=== PATIENT | female | born 1940 | race Caucasian/White ===

== ENCOUNTER 2017-08-22 06:21 | Inpatient (IN) | payer MEDICARE, OTHER ==
[~2017-08-22] VITALS: Ht 175.3 cm; Wt 75.1 kg
--- OUTSIDE RECORDS SUMMARY | 2017-08-22 06:24 | XMS REPORT | Clinical Summary ---
Author Author Leslie InspireMD Leslie Druze Address Unknown Phone Unavailable Care Team Providers Care Sap Basis Architect Name Role Phone Asked, Pcp PCP Unavailable Allergies Active Allergy Reactions Severity Noted Date Comments Ceftriaxone Swelling 09/24/2016 Ciprofloxacin Swelling Medium 08/27/2015 "eyes swell" Iodinated Contrast- Oral Shortness Of Breath High 02/27/2016 And Iv Dye Benzocaine-Benzethonium Shortness Of Breath High 02/26/2016 Nitrofurantoin Swelling Medium 08/27/2015 "eyes swell" Monohyd/M-Cryst Opioids - Morphine Other (See Comments) High 06/11/2016 "convulsions" Analogues Opioids-Meperidine And Other (See Comments) High 06/11/2016 "convulsions" Related Opioids-Methadone And Other (See Comments) High 06/11/2016 "convulsions" Related Bromelains 09/01/2016 Sulfa (Sulfonamide Itching Medium 08/27/2015 Antibiotics) Current Medications Prescription Sig. Disp. Refills Start End Date Status Date thyroid, pork, (ARMOUR Take 180 mg by mouth Active THYROID) 180 mg tablet every morning. clonIDINE (CATAPRES) 0.1 Take 0.1 mg by mouth Active MG tablet daily as needed for high blood pressure ((for SBP>170)). gabapentin (NEURONTIN) Take 300 mg by mouth 3 08/30/19 Discontin 300 mg capsule (three) times a day. 17 ued metoprolol succinate XL Take 25 mg by mouth 11/13/19 Discontin (TOPROL-XL) 25 mg 24 hr nightly. 17 ued tablet predniSONE (DELTASONE) 5 Take 5 mg by mouth every 09/05/19 Discontin mg tablet morning. 2.5mg po every 17 ued other day losartan (COZAAR) 100 MG Take 100 mg by mouth 11/13/19 Discontin tablet every morning. 17 ued ursodiol (JOSELUIS FORTE) 500 Take 500 mg by mouth 2 09/26/19 Discontin MG tablet (two) times a day. 17 ued LORAZepam (ATIVAN) 0.5 MG Take 0.5 mg by mouth 11/13/19 Discontin tablet nightly as needed for 17 ued anxiety. atorvastatin (LIPITOR) 20 Take 20 mg by mouth 08/30/19 Discontin MG tablet nightly. 17 ued aspirin (ECOTRIN) 81 MG Take 81 mg by mouth every 09/26/19 Discontin enteric coated tablet evening. 17 ued ARMOUR THYROID 120 mg TK 1 T PO ONCE D 1 07/08/19 08/30/19 Discontin tablet 17 17 ued hydroCHLOROthiazide TK 1 T PO QD 6 07/31/19 11/13/19 Discontin (HYDRODIURIL) 25 MG 17 17 ued tablet ELIQUIS 5 mg tablet TK 1 T PO BID 4 08/06/19 09/26/19 Discontin 17 17 ued amoxicillin-pot TK 1 T PO BID 0 06/02/19 08/30/19 Discontin clavulanate (AUGMENTIN) 17 17 ued 500-125 mg per tablet amLODIPine (NORVASC) 5 mg TK 1 T PO BID 6 07/29/19 11/13/19 Discontin tablet 17 17 ued diphenhydrAMINE Take 1 tablet (25 mg 30 tablet 0 09/05/19 10/05/19 (BENADRYL) 25 mg tablet total) by mouth every 6 17 17 (six) hours as needed for itching for up to 30 days. albuterol (PROVENTIL) 2.5 Take 3 mL (2.5 mg total) 75 mL 12 09/05/19 10/05/19 mg /3 mL (0.083 %) by nebulization every 6 17 nebulizer solution (six) hours as needed for wheezing or shortness of breath for up to 30 days. cefTRIAXone (ROCEPHIN) 2 Infuse 2 g into a venous 09/05/19 09/11/19 g in 100 ML Mini-Bag Plus catheter every 12 17 17 (twelve) hours for 6 days. predniSONE (DELTASONE) Take 1 tablet (2.5 mg 15 tablet 0 09/05/19 2.5 mg tablet total) by mouth every 17 17 other day for 30 days. sennosides-docusate Take 1 tablet by mouth 2 60 tablet 0 09/05/19 sodium (SENOKOT-S) 8.6-50 (two) times a day for 30 17 17 mg per tablet days. amoxicillin-pot Take 1 tablet by mouth 20 tablet 0 11/13/19 clavulanate (AUGMENTIN) every 12 (twelve) hours 17 17 875-125 mg per tablet for 10 days. metroNIDAZOLE (FLAGYL) Take 1 tablet (500 mg 30 tablet 0 11/13/19 500 MG tablet total) by mouth 3 (three) 17 17 times a day for 9 days. Active Problems No known active problems Resolved Problems Problem Noted Date Resolved Date Complete heart block 09/25/2016 09/26/2016 Acute bacterial meningitis 08/27/2016 09/25/2016 Dyspnea 06/11/2016 10/15/2016 Acute knee pain 02/27/2016 09/25/2016 Postoperative cerebrospinal fluid leak 06/12/2015 10/15/2016 Overview: Overview: Nasal, via left mastoid/eustacean Encounters Date Type Specialty Care Team Description 11/12/2016 Emergency Emergency Medicine Rosa, Noble De La Torre MD Colitis (Primary Dx); Chadd Johnson PA-C Diverticulitis of large intestine without perforation or abscess with bleeding 09/26/2016 Patient Quality Malia Hart, RN Outreach 09/25/2016 [facility] General Internal Medicine Rashaad Yanez Preoperative testing - Encounter MD Santhosh 09/26/2016 09/25/2016 Procedure Pass Procedural Cardiology 09/25/2016 Surgery Procedural Cardiology Rashaad Yanez Ep ppi [ 57834 (CPT )] MD Santhosh 09/24/2016 Pre-Admit Pre-Admission Testing Rashaad Yanez Preoperative testing Testing MD Santhosh (Primary Dx) Appointment 08/28/2016 Procedure Pass Procedural Cardiology 08/28/2016 Surgery Procedural Cardiology Rashaad Yanez Ep temporary ppi MD Santhosh insertion with active lead fixation and outside generator [44640 (CPT )] 08/26/2016 [facility] General Internal Medicine Facundo Nielsen Acute bacterial - Encounter MD Wallace meningitis (Primary Dx) 09/04/2016 Nafisa Oquendo MD after 08/21/2016 Family History Medical History Relation Name Comments Cancer Father Hypertension Father Stroke Maternal Grandfather Heart failure Mother Cancer Other Hypertension Other Stroke Other Relation Name Status Comments Father Maternal Grandfather Mother Other Social History Tobacco Use Types Packs/Day Years Used Date Never Smoker Alcohol Use Drinks/Week oz/Week Comments No Sex Assigned at Date Recorded Not on file Last Filed Vital Signs Vital Sign Reading Time Taken Blood Pressure 122/76 11/12/2016 5:12 PM CDT Pulse 69 11/12/2016 3:21 PM CDT Temperature 36.2 C (97.2 F) 11/12/2016 5:12 PM CDT Respiratory Rate 18 11/12/2016 5:12 PM CDT Oxygen Saturation 99% 11/12/2016 5:12 PM CDT Inhaled Oxygen - - Concentration Weight 67.1 kg (148 lb) 11/12/2016 10:15 AM CDT Height 175.3 cm (5' 9") 11/12/2016 10:15 AM CDT Body Mass Index 21.86 11/12/2016 10:15 AM CDT Plan of Treatment Health Maintenance Due Date Last Done Comments SHINGRIX VACCINE (#1) 1990 ZOSTER VACCINE 2000 PNEUMOCOCCAL 2005 POLYSACCHARIDE VACCINE AGE 65 AND OVER PNEUMOCOCCAL-13 2005 INFLUENZA VACCINE 10/13/2017 Implants Implanted Type Area Welding Supervisor Device Expiration Model / Identifier Date Serial / Lot Disp Pacing Cable, Small Clip Cables/ N/A: N/A IZZY 09/05/2018 [id number] / W/[employer] / Implanted: Qty: 1 on 09/25/2016 by [id number] Rashaad Yanez MD Accolade Mri Dr Pacemaker - Cardiac Right: HOLLAND PATENT 07/28/2018 [id number] / [id number] Pacemaker Chest SCIENTIFIC- CRM [id number] / Implanted: 09/25/2016 (Quantity not Generators Wall [id number] on file) 52cm Ingevity Mri Active Fixation Cardiac N/A: N/A HOLLAND PATENT 08/10/2018 7741 / Pacing Lead - [id number] - [id number] Pacing SCIENTIFIC- CRM [id number] / Implanted: Qty: 1 on 08/28/2016 by Leads or [id number] Rashaad Yanez MD Electrodes or Accessorie s Ingevity Mri Pacing Lead 45cm - Cardiac N/A: N/A HOLLAND PATENT 08/10/2018 7740 45 / [id number] Pacing SCIENTIFIC- CRM [id number] / Implanted: 09/25/2016 (Quantity not Leads or [id number] on file) Electrodes or Accessorie s 52cm Ingevity Mri Active Fixation Cardiac N/A: N/A HOLLAND PATENT 09/10/2018 7741 / Pacing Lead - [id number] Pacing SCIENTIFIC- CRM [id number] / Implanted: 09/25/2016 (Quantity not Leads or [id number] on file) Electrodes or Accessorie s 6fr Safesheath Ii Introducer Introducer Right: HOLLAND PATENT 04/15/2021 7460 / Sheath, Model 7460 / Part # /Sheath Chest SCIENTIFIC/CRM / [id number] (Mfr'D By Pressure Wall (FORMERLY DIV [id number] Products) OF GUIDANT) Implanted: Explanted: 08/28/2016 (Quantity not on file) Pacemaker Explanted Type Area Welding Supervisor Device Expiration Model / Identifier Date Serial / Lot 52cm (0.014in) [employer]land[employer] Scientfic Accessorie N/A: N/A HOLLAND PATENT 2019 5013 / Lead Stylet, Long Tapered, Soft s - EP SCIENTIFIC/CRM [id number] / Implanted: (FORMERLY DIV [id number] Explanted: 08/28/2016 (Quantity not OF GUIDANT) on file) 6fr Safesheath Ii Introducer Introducer N/A: N/A HOLLAND PATENT 04/15/2021 7460 / Sheath, Model 7460 / Part # /Sheath SCIENTIFIC/CRM / [id number] (Mfr'D By Pressure (FORMERLY DIV [id number] Products) OF GUIDANT) Implanted: Explanted: 09/25/2016 by Rashaad Yanez MD (Quantity not on file) Procedures Procedure Name Priority Date/Time Associated Diagnosis Comments EP PPI Routine 09/25/2016 4:58 PM CDT EP TEMPORARY PPI Routine 08/28/2016 INSERTION 5:05 PM CDT ECHOCARDIOGRAM 2D Routine 08/27/2016 Results for this COMPLETE W MMODE SPECTRAL 5:15 PM CDT procedure are in the COLOR DOPPLER (68083) results section. after 08/21/2016 Results * Urinalysis screen and microscopy, with reflex to culture (11/12/2016 1:26 PM) Only the most recent of 2 results within the time period is included. Component Value Ref Range Specimen site Clean catch Color, UA Yellow Appearance, UA Clear Specific gravity, UA 1.015 1.001 - 1.035 pH, UA 5.0 5.0 - 8.5 Protein, UA Negative Negative Glucose, UA Negative Negative Ketones, UA Negative Negative Bilirubin, UA Negative Negative Blood, UA Negative Negative Nitrite, UA Negative Negative Urobilinogen, UA Negative <2.0 Leukocyte esterase, UA Moderate (A) Negative Epithelial cells, UA Few /HPF Round epithelial cells, Moderate 0 - 1 /HPF UA WBC, UA 6-10 (H) 0 - 4 /HPF RBC, UA 0-5 0 - 2 /HPF Bacteria, UA Trace None seen Yeast, UA None seen Yeast with pseudohyphae, None seen UA Hyaline casts, UA 6-10 /LPF Specimen Performing Laboratory Urine [facility] DEPARTMENT OF PATHOLOGY AND GENOMIC MEDICINE [id number] [place] [address] [place] [address] * Gram stain (11/12/2016 1:26 PM) Only the most recent of 4 results within the time period is included. Component Value Ref Range Gram stain result Few WBC's No organisms seen Comment: Specimen Information Specimen Source: Urine Specimen Site: See UA Specimen Performing Laboratory Urine [facility] DEPARTMENT OF PATHOLOGY AND GENOMIC MEDICINE [address] [place] [id number] * Urine culture (11/12/2016 1:26 PM) Only the most recent of 2 results within the time period is included. Component Value Ref Range Urine culture isolate Mixed Gram negative rods 10-3 cfu/ml (A) Comment: Specimen Information Specimen Source: Urine Specimen Site: See UA Urine culture isolate Enterococcus faecalis 10-5 cfu/ml The performance characteristics of this assay on this isolate were validated by the Microbiology Laboratory at [facility]. This source has not been approved by the U.S. Food and Drug Administration. The results are not intended to be used as the sole means for clinical diagnosis or patient management. The Microbiology Laboratory is authorized under the clinical Laboratory Improvement Amendments of 1988 (CLIA-88) to perform high complexity testing. (A) Specimen Performing Laboratory Urine [facility] DEPARTMENT OF PATHOLOGY AND GENOMIC MEDICINE [address] [place] [id number] Organism Antibiotic Method Susceptibility Enterococcus faecalis Ampicillin EVARISTO 2 mcg/mL: Susceptible Enterococcus faecalis Nitrofurantoin EVARISTO <=16 mcg/mL: Susceptible Enterococcus faecalis Levofloxacin EVARISTO <=1 mcg/mL: Susceptible Enterococcus faecalis Linezolid EVARISTO <=1 mcg/mL: Susceptible Enterococcus faecalis Minocycline EVARISTO >8 mcg/mL: Resistant Enterococcus faecalis Tetracycline EVARISTO >8 mcg/mL: Resistant Enterococcus faecalis Vancomycin EVARISTO 1 mcg/mL: Susceptible * Estimated GFR (11/12/2016 1:00 PM) Only the most recent of 8 results within the time period is included. Component Value Ref Range GFR Non Af Amer 54 (A) mL/min/1.73 m2 GFR Af Amer 65 mL/min/1.73 m2 Comment: Chronic kidney disease: <60 mL/min/1.73m2 Kidney failure: <15 mL/min/1.73m2 The estimated GFR is calculated from the IDMS-traceable Modification of Diet in Renal Disease Equation. The accuracy of the calculation is poor when the creatinine is normal. Calculated values >90 mL/min/1.73m2 are not reported. This equation has not been validated in children (<18 years), women, the elderly (>70 years), or ethnic groups other than Caucasians and Americans. Specimen Performing Laboratory Plasma specimen [facility] PATHOLOGY AND [facility] MED[facility] [address] [place] [address] * Troponin (11/12/2016 1:00 PM) Only the most recent of 3 results within the time period is included. Component Value Ref Range Troponin <0.300 0.000 - 0.300 ng/mL Comment: 0.30 - 1.49 ng/ml May indicate increased risk of acute coronary syndrome. >=1.5 ng/ml Consistent with acute myocardial infarction. The diagnostic value of a single normal or non-diagnostic result is questionable. Serial samples at 2-6 hour intervals are required to rule out acute myocardial injury. Specimen Performing Laboratory Plasma specimen [facility] PATHOLOGY AND [facility] [address] [place], [place] [address] * CBC with platelet and differential (11/12/2016 1:00 PM) Only the most recent of 4 results within the time period is included. Component Value Ref Range WBC 10.35 4.50 - 11.00 k/uL RBC 4.11 (L) 4.20 - 5.50 m/uL HGB 12.4 12.0 - 16.0 g/dL HCT 37.7 37.0 - 47.0 % MCV 91.7 82.0 - 100.0 fL MCH 30.2 27.0 - 34.0 pg MCHC 32.9 31.0 - 37.0 g/dL RDW - SD 45.0 37.0 - 55.0 fL MPV 10.0 8.8 - 13.2 fL Platelet count 266 150 - 400 k/uL Nucleated RBC 0.00 /100 WBC Neutrophils 68.2 39.0 - 69.0 % Lymphocytes 19.7 (L) 25.0 - 45.0 % Monocytes 8.0 0.0 - 10.0 % Eosinophils 3.2 0.0 - 5.0 % Basophils 0.7 0.0 - 1.0 % Immature granulocytes 0.2Comment: "Immature granulocytes" 0.0 - 1.0 % (promyelocytes, myelocytes, metamyelocytes) Specimen Performing Laboratory Blood [facility] DEPARTMENT OF PATHOLOGY AND [address] [place] [address] * Lipase level (11/12/2016 1:00 PM) Component Value Ref Range Lipase 41 13 - 60 U/L Specimen Performing Laboratory Plasma specimen [facility] PATHOLOGY AND [address] [place] [address] * Amylase level (11/12/2016 1:00 PM) Component Value Ref Range Amylase 75 (H) 13 - 73 U/L Specimen Performing Laboratory Plasma specimen [facility] PATHOLOGY [address] [place] [address] * Comprehensive metabolic panel (11/12/2016 1:00 PM) Only the most recent of 4 results within the time period is included. Component Value Ref Range Sodium 139 135 - 148 mEq/L Potassium 4.3 3.5 - 5.0 mEq/L Chloride 104 98 - 112 mEq/L CO2 20 (L) 24 - 31 mEq/L Anion gap 15 7 - 15 mEq/L Comment: Starting from June , anion gap calculation no longer incorporates potassium. Please note the change. BUN 24 (H) 8 - 23 mg/dL Creatinine 1.0 (H) 0.5 - 0.9 mg/dL Glucose 108 (H) 65 - 99 mg/dL Calcium 11.6 (H) 8.8 - 10.2 mg/dL Protein 7.4 6.3 - 8.3 g/dL Comment: [place] 4.6-7.0 g/dL 1 week 4.4-7.6 g/dL 7 months-1year 5.1-7.3 g/dL 1-2 years 5.6-7.5 g/dL >3 years 6.0-8.0 g/dL 18-150 6.3-8.3 g/dL Albumin 3.8 3.5 - 5.0 g/dL A/G ratio 1.1 0.7 - 3.8 Alkaline phosphatase 101 35 - 104 U/L AST 21 10 - 35 U/L ALT 25 5 - 50 U/L Total bilirubin 0.6 0.0 - 1.2 mg/dL Specimen Performing Laboratory Plasma specimen [facility] DEPARTMENT OF PATHOLOGY AND GENOMIC MEDICINE [address] [place] [address] * US Gallbladder (11/12/2016 11:32 AM) Specimen Performing Laboratory [facility] [address] [place] [address] Narrative EXAMINATION:US GALLBLADDER CLINICAL HISTORY:Cholecystitis COMPARISON:None. FINDINGS: Gallbladder: The gallbladder is without evidence of calculi. The gallbladder wall is not thickened and there is no pericholecystic fluid. CBD: 3 mm Portal vein: The portal vein demonstrates normal hepatopetal flow. Liver: The visualized portions of liver are unremarkable. IMPRESSION: Normal gallbladder ultrasound examination. [facility]-[id number] Procedure Note Interface, Radiology Results Incoming - 11/12/2016 11:37 AM CDT EXAMINATION: US GALLBLADDER CLINICAL HISTORY:Cholecystitis COMPARISON: None. FINDINGS: Gallbladder: The gallbladder is without evidence of calculi. The gallbladder wall is not thickened and there is no pericholecystic fluid. CBD: 3 mm Portal vein: The portal vein demonstrates normal hepatopetal flow. Liver: The visualized portions of liver are unremarkable. IMPRESSION: Normal gallbladder ultrasound examination. [facility]-[id number] * CT Renal Stone Protocol (11/12/2016 11:10 AM) Specimen Performing Laboratory [facility] [address] [place] [address] Narrative EXAMINATION:CT RENAL STONE PROTOCOL CLINICAL HISTORY:75 years Female abd painpt decline iv contrast TECHNIQUE:Multiple axial images of the abdomen and pelvis were obtained without intravenous administration of iodinated contrast. Sagittal and coronal computerized reformatted images were also obtained. The lack of intravenous contrast reduces the sensitivity of detecting solid organ disease. CT imaging was performed with iterative reconstruction techniques and/or automated exposure control to reduce radiation dose. COMPARISON:None. Findings: There is elevation of the left hemidiaphragm.. The left kidney is interposed between the diaphragm and spleen. The gallbladder and adrenal glands appear within normal limits to the limits visualized although the left adrenal is not well delineated. The right kidney demonstrates a posterior upper pole cortical cyst measuring approximately 4.6 cm in diameter. There is no hydronephrosis or hydroureter on either side. The uterus is not visualized and apparently has been removed. The ovaries likewise are not well-visualized. The appendix appears normal. There is moderate gas and stool present in the colon. There is scattered diverticulosis noted in the sigmoid area with mild thickening of the wall of the sigmoid suggestion of possibility of mild diverticulitis or short segment of colitis. There may be an additional small area of thickening in the distal descending colon as well. Bowel otherwise appears unremarkable no obstruction is identified. Mild wedging one of the lumbar vertebra which is probably old. IMPRESSION: 1. Mild thickening the wall of the rectosigmoid colon and possibly intermittently involving the distal descending colon suggesting mild colitis/ sigmoid diverticulitis. 2. Moderate stool throughout the colon. 3. 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 Sagittal and coronal computerized reformatted images were also obtained. The lack of intravenous contrast reduces the sensitivity of detecting solid organ disease. CT imaging was performed with iterative reconstruction techniques and/or automated exposure control to reduce radiation dose. COMPARISON: None. Findings: There is elevation of the left hemidiaphragm.. The left kidney is interposed between the diaphragm and spleen. The gallbladder and adrenal glands appear within normal limits to the limits visualized although the left adrenal is not well delineated. The right kidney demonstrates a posterior upper pole cortical cyst measuring approximately 4.6 cm in diameter. There is no hydronephrosis or hydroureter on either side. The uterus is not visualized and apparently has been removed. The ovaries likewise are not well-visualized. The appendix appears normal. There is moderate gas and stool present in the colon. There is scattered diverticulosis noted in the sigmoid area with mild thickening of the wall of the sigmoid suggestion of possibility of mild diverticulitis or short segment of colitis. There may be an additional small area of thickening in the distal descending colon as well. Bowel otherwise appears unremarkable no obstruction is identified. Mild wedging one of the lumbar vertebra which is probably old. IMPRESSION: 1. Mild thickening the wall of the rectosigmoid colon and possibly intermittently involving the distal descending colon suggesting mild colitis/ sigmoid diverticulitis. 2. Moderate stool throughout the colon. 3. 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 Specimen Performing Laboratory [facility] [address] [place] [address] Narrative EXAMINATION:XR CHEST 1 VW PORTABLE CLINICAL HISTORY:Post-op surgery COMPARISON: August 28, 2016 . IMPRESSION: 1.Heart size is at upper limits of normal. 2.There is a pacemaker device/AICD overlying the right chest. 3.Lungs are clear. Mild prominence of the interstitium has resolved when compared to August 28, 2016. No pneumothorax. Atelectasis is noted in left lung base unchanged from prior. 4.Mild apical scarring/pleural thickening in the right apex is unchanged from prior. [id number] Procedure Note Interface, Radiology Results Incoming - 09/25/2016 6:37 PM CDT EXAMINATION: XR CHEST 1 VW PORTABLE CLINICAL HISTORY: Post-op surgery COMPARISON: August 28, 2016 . IMPRESSION: 1. Heart size is at upper limits of normal. 2. There is a pacemaker device/AICD overlying the right chest. 3. Lungs are clear. Mild prominence of the interstitium has resolved when compared to August 28, 2016. No pneumothorax. Atelectasis is noted in left lung base unchanged from prior. 4. Mild apical scarring/pleural thickening in the right apex is unchanged from prior. [id number] * Cv electrophysiology procedure (09/25/2016 4:58 PM) Specimen Performing Laboratory [facility] [address] [place] [address] * ECG 12 lead (09/24/2016 10:46 AM) Only the most recent of 2 results within the time period is included. Component Value Ref Range Ventricular rate 90 Atrial rate 90 KY interval 158 QRSD interval 90 QT interval 320 QTC interval 391 P axis 1 53 QRS axis 1 -8 T wave axis 108 EKG impression Normal sinus rhythm-Left ventricular hypertrophy with repolarization abnormality-Abnormal ECG-In automated comparison with ECG of 29-AUG-2016 02:27,-Nonspecific T wave abnormality has replaced inverted T waves in Anterior leads-T wave inversion now evident in Lateral leads- Specimen Performing Laboratory [facility] [address] [place] [address] * Partial thromboplastin time, activated (09/24/2016 10:12 AM) Only the most recent of 2 results within the time period is included. Component Value Ref Range PTT 27.9 23.0 - 36.0 sec Comment: PTT therapeutic range for unfractionated heparin is 61.0-112.0 seconds which corresponds to Anti-Xa 0.3-0.7 U/ml. Specimen Performing Laboratory Blood [facility] DEPARTMENT OF PATHOLOGY AND [facility] [id number] [place] [address] [place] [address] * Prothrombin time with INR (09/24/2016 10:12 AM) Only the most recent of 2 results within the time period is included. Component Value Ref Range Prothrombin time 13.3 12.0 - 15.0 sec INR 1.0 Comment: The International Normalized Ratio (INR) is a therapeutic monitoring tool for patients who are stable on oral anticoagulant therapy. An INR of 2.0-3.0 is suggested for deep vein thrombosis/pulmonary embolism. Specimen Performing Laboratory Blood [facility] PATHOLOGY AND [facility] [address] [place] [address] [place] [address] * CBC hemogram (09/24/2016 10:12 AM) Component Value Ref Range WBC 10.50 4.50 - 11.00 k/uL RBC 4.32 4.20 - 5.50 m/uL HGB 13.0 12.0 - 16.0 g/dL HCT 39.7 37.0 - 47.0 % MCV 91.9 82.0 - 100.0 fL MCH 30.1 27.0 - 34.0 pg MCHC 32.7 31.0 - 37.0 g/dL RDW - SD 49.1 37.0 - 55.0 fL MPV 10.2 8.8 - 13.2 fL Platelet count 298 150 - 400 k/uL Nucleated RBC 0.00 /100 WBC Specimen Performing Laboratory Blood [facility] PATHOLOGY AND [facility] [id number] [place] [address] [place] [address] * Basic metabolic panel (09/24/2016 10:12 AM) Only the most recent of 4 results within the time period is included. Component Value Ref Range Sodium 139 135 - 148 mEq/L Potassium 3.5 3.5 - 5.0 mEq/L Chloride 100 98 - 112 mEq/L CO2 24 24 - 31 mEq/L Anion gap 15 7 - 15 mEq/L Comment: Starting from June , anion gap calculation no longer incorporates potassium. Please note the change. BUN 15 8 - 23 mg/dL Creatinine 0.9 0.5 - 0.9 mg/dL Glucose 99 65 - 99 mg/dL Calcium 11.3 (H) 8.8 - 10.2 mg/dL Specimen Performing Laboratory Plasma specimen [facility] PATHOLOGY [address] [place] [address] * Vancomycin level, trough (09/02/2016 8:02 PM) Only the most recent of 3 results within the time period is included. Component Value Ref Range Vancomycin, trough 5.0 (L) 10.0 - 20.0 ug/mL Comment: Therapeutic Ranges: Peak 30.0 - 40.0 ug/mL Trough 10.0 - 20.0 ug/mL Specimen Performing Laboratory Serum [facility] PATHOLOGY AND [address] [place] [address] * Us duplex venous lower extremity (09/02/2016 4:12 PM) Specimen Performing Laboratory [facility] [address] [place] [address] Narrative The right lower extremity venous study is negative for DVT. There is evidence of probable chronic thrombus in the left femroal and popliteal veins. PRELIMINARY REPORT: POSITIVE DVT STUDY for chronic deep vein thrombus * Manual differential (09/02/2016 6:13 AM) Component Value Ref Range Manual differential PERFORMED Neutrophils 70.0 (H) 39.0 - 69.0 % Lymphocytes 17.0 (L) 25.0 - 45.0 % Monocytes 6.0 0.0 - 10.0 % Eosinophils 0.0 0.0 - 5.0 % Basophils 0.0 0.0 - 1.0 % Metamyelocytes 0 % Promyelocytes 0 % Reactive lymphocytes 7.0 Platelet slide review Bakari adequate Specimen Performing Laboratory [facility] DEPARTMENT OF PATHOLOGY AND [facility] MEDICINE [id number] [place] [address] [place] [address] * Thyroid stimulating hormone (09/01/2016 11:30 AM) Component Value Ref Range TSH 0.27 0.27 - 4.20 uIU/mL Specimen Performing Laboratory Plasma specimen [facility] DEPARTMENT OF PATHOLOGY AND [facility] MEDICINE [id number] [place] [address] [place] [address] * ECG Pre/Post Op-Tomorrow (08/29/2016 2:27 AM) Component Value Ref Range Ventricular rate 84 Atrial rate 84 [place] interval 160 QRSD interval 94 QT interval 328 QTC interval 387 P axis 1 60 QRS axis 1 32 T wave axis 62 EKG impression Normal sinus rhythm-Left ventricular hypertrophy with repolarization abnormality-Abnormal ECG-In automated comparison with ECG of 26-AUG-2016 23:38,-ST now depressed in Lateral leads-Nonspecific T wave abnormality now evident in Inferior leads-Inverted T waves have replaced nonspecific T wave abnormality in Anterior leads- Specimen Performing Laboratory [facility] [address] [place] [address] * Cv electrophysiology procedure (08/28/2016 5:05 PM) Specimen Performing Laboratory [facility] [address] [place] [address] * Echocardiogram complete w contrast and 3D if needed (08/27/2016 5:15 PM) Component Value Ref Range AoV Area, Vmax 2.95 cm2 AoV Area, VTI 3.40 cm2 AoV Mean PG 6.99 mmHg AoV Peak PG 12.60 mmHg AoV Vmax 1.77 m/s AoV VTI 0.33 m IVS,d 0.94 0.6 - 1.2 cm LV,d 3.30 cm LV EF,A2C 61.71 % LV EF,A4C 59.30 % LV EF,BP 61.38 % [place],d A2C 6.56 cm [place],d A4C 6.16 cm [place],s A2C 5.24 cm [place],s A4C 5.29 cm LV,s 2.27 cm LV SV,A2C 43.03 % LV SV,A4C 24.54 % LV Vol,d A2C 69.73 mL LV Vol,d A4C 41.39 ml LV Vol,d BP 55.10 ml LV Vol,s A2C 26.70 mL LV Vol,s A4C 16.85 ml LV Vol,s BP 21.28 nl LVOT Diam,S 2.11 cm LVOT Vmax 1.50 m/s LVOT VTI 0.32 m LVPWD,d 0.79 cm RVSP (TR) 51.91 mmHg TR Vpeak 3.42 mm/s MV E A ratio 0.93 mmHg TR pk grad 40.48 mmHg E wave decelartion time 189.36 msec MV Peak A Loc 0.94 m/s MV valve area p 1/2 4.20 cm2 method MV Peak E Loc 0.87 m/s MV stenosis pressure 1/2 52.34 ms time AV LVOT peak gradient 8.98 mmHg RVSP 51.91 mmHg LV SYS VOL 17.53 ml LV LUND VOL 44.18 ml LV SV Teich 2D 26.65 ml AoV Cusp sep 1.85 AoV Vmn 1.24 IVS s 2D 1.56 LA Ao Ratio Mmode 1.17 LVOT Vmn 1.12 Pt Size 0.00 Pt Wt 0.00 Ao root annulus 3.29 cm PV AT 89.97 msec LVOT mean grad 5.38 mmHg LVPW s PLAX 0.98 cm MV Decel slope 4.62 m/s2 Velocity Ratio (V1/V2) 0.85 m/s EF 60.32 % E/A ratio 0.93 LVOT area 3.49 cm2 LA Area d A4C 45 cm2 RA pressure 5 mmHg LA diam s 3.80 cm LA Vol MOD A4C 44.00 ml Aortic Root 3.30 D E excurs 1.30 E f slope 0.03 E prime lat 0.09 E amrita sept 0.08 PV acc T slope 11.60 Specimen Performing Laboratory [facility] [address] [place] [address] Narrative Left Ventricular ejection fraction is 55 - 60%. Left ventricular systolic function is normal.The left ventricular chamber size is normal Spectral Doppler shows impaired relaxation pattern of LV diastolic filling. Normal LV filling pressure Normal right ventricular size and function. The mitral valve appears thickened. No significant mitral valve regurgitation. No evidence of mitral valve stenosis Mild tricuspid valve regurgitation. No evidence of tricuspid valve stenosis. Moderately elevated pulmonary artery systolic pressure The aortic valve appears sclerotic. No significant aortic regurgitation. No evidence of aortic valve stenosis No pericardial effusion seen * FL Lumbar Puncture by Radiology (08/27/2016 3:05 PM) Specimen [facility] [address] [place] [address] Narrative EXAMINATION:FL LUMBAR PUNCTURE CLINICAL HISTORY:Meningitis. Discussed with Dr. Ospina the urgency of microbiology analysis of the CSF. PROCEDURE: After the risks, benefits, and alternatives to the procedure discussed, informed consent was obtained, signed, and placed in the chart. The lower back was prepped and draped in a sterile manner. A timeout was performed to verify the patient's identity and the proposed procedure. 1% lidocaine for was given for local anesthesia. Under fluoroscopic guidance, a 27 guage needle was advanced into the thecal sac at the level ofL2-3until clear CSF return from the hub. 14 mL of cloudy CSF was obtained. The samples were sent to the laboratory for the requested analysis. The stylet was replaced and the needle was removed. Gentle pressure was applied to the puncture site. The patient tolerated the procedure well without any immediate complications. IMPRESSION: Fluoroscopic guided lumbar puncture. 14 mL of cloudy CSF obtained and submitted to the laboratory. Fluoroscopy time: 1 minute, 48 seconds. 2 images obtained [id number] Procedure Note Interface, Radiology Results Incoming - 08/27/2016 5:20 PM CDT EXAMINATION: FL LUMBAR PUNCTURE CLINICAL HISTORY: Meningitis. Discussed with Dr. Ospina the urgency of microbiology analysis of the CSF. PROCEDURE: After the risks, benefits, and alternatives to the procedure discussed, informed consent was obtained, signed, and placed in the chart. The lower back was prepped and draped in a sterile manner. A timeout was performed to verify the patient's identity and the proposed procedure. 1% lidocaine for was given for local anesthesia. Under fluoroscopic guidance, a 27 guage needle was advanced into the thecal sac at the level of L2-3 until clear CSF return from the hub. 14 mL of cloudy CSF was obtained. The samples were sent to the laboratory for the requested analysis. The stylet was replaced and the needle was removed. Gentle pressure was applied to the puncture site. The patient tolerated the procedure well without any immediate complications. IMPRESSION: Fluoroscopic guided lumbar puncture. 14 mL of cloudy CSF obtained and submitted to the laboratory. Fluoroscopy time: 1 minute, 48 seconds. 2 images obtained [id number] * VDRL, CSF screen (08/27/2016 2:53 PM) Component Value Ref Range VDRL, CSF screen Non-reactive Non-reactive Specimen Performing Laboratory Cerebrospinal fluid [facility] DEPARTMENT OF PATHOLOGY AND GENOMIC MEDICINE [address] [place] [address] * Glucose level, CSF (08/27/2016 2:53 PM) Component Value Ref Range Glucose, CSF 58 40 - 70 mg/dL Specimen Performing Laboratory Cerebrospinal fluid [facility] DEPARTMENT OF PATHOLOGY AND GENOMIC MEDICINE [address] [place] [address] [place] [address] * CSF culture (08/27/2016 2:45 PM) Component Value Ref Range CSF culture isolate No growth after 3 days. Comment: Specimen Information Specimen Source: CSF (Spinal Fluid) Specimen Site: CSF (spinal fluid) Specimen Performing Laboratory Cerebrospinal fluid - CSF [facility] DEPARTMENT PATHOLOGY AND [facility] (spinal fluid) [address] [place] [address] * Protein, CSF (08/27/2016 2:45 PM) Component Value Ref Range Protein, CSF 257 (H) 15 - 45 mg/dL Specimen Performing Laboratory Cerebrospinal fluid [facility] DEPARTMENT OF PATHOLOGY AND [address] [place] [address] * CSF pathologist consult (08/27/2016 2:15 PM) Component Value Ref Range CSF pathologist consult Done Comment: Agree with cell count. Reviewed by Dr. Chadd Arora Specimen Performing Laboratory Cerebrospinal fluid [facility] DEPARTMENT OF PATHOLOGY AND [address] [place] [address] * CSF cell count with differential (08/27/2016 2:15 PM) Component Value Ref Range Color, CSF ColorlessComment: tube 3 Appearance, CSF Slightly hazy (A) CSF supernatant Colorless RBC, CSF 100 (H) 0 - 1 /CMM WBC, CSF 3,380 (HH)Comment: Results called to and read back 0 - 5 /CMM by Paulette in 3m at 08/27/16 1649 by jk. CSF mononuclear cell See Diff Neutrophils, CSF 96 % Lymphocytes, CSF 1 % Monocytes, CSF 3 % Specimen Performing Laboratory Cerebrospinal fluid [facility] DEPARTMENT OF PATHOLOGY AND GENOMIC MEDICINE [address] [place] [address] [place] [address] * ECG ED Preliminary Interpretation - NOT AN ORDER (08/27/2016 2:47 AM) Narrative Facundo Nielsen MD 08/27/20162:47 AM ECG ED Preliminary Interpretation - Not an Order Performed by: FACUNDO NIELSEN Authorized by: FACUNDO NIELSEN ECG reviewed by ED Physician in the absence of a histologist technologist: yes Previous ECG: Previous ECG:Unavailable Interpretation: Interpretation: abnormal Quality: Tracing quality:Limited by artifact Rate: ECG rate:102 ECG rate assessment: normal Rhythm: Rhythm: sinus rhythm Ectopy: Ectopy: none QRS: QRS axis:Normal QRS intervals:Normal Conduction: Conduction: normal ST segments: ST segments:Normal T waves: T waves: normal Comments: Sinus tachycardia. * Insert peripheral IV (08/27/2016 2:47 AM) Narrative Facundo Nielsen MD 08/27/20162:47 AM Insert peripheral IV Date/Time: 08/27/2016 2:05 AM Performed by: FACUNDO NIELSEN Authorized by: FACUNDO NIELSEN Consent: Verbal consent obtained. Risks and benefits: risks, benefits and alternatives were discussed Consent given by: patient Patient understanding: patient states understanding of the procedure being performed Patient identity confirmed: verbally with patient and arm band Local anesthesia used: no Anesthesia: Local anesthesia used: no Sedation: Patient sedated: no Patient tolerance: Patient tolerated the procedure well with no immediate complications Comments: 20g R antecube using US guidance.Nursing staff unable to obtain peripheral access after multiple attempts. * CT Head Wo Contrast (08/27/2016 1:45 AM) Specimen Performing Laboratory [address] [address] Narrative Examination:CT HEAD WO CONTRAST Clinical History: CONFUSION DELERIUMALTERED LOCUNEXPLAINED Comparison: 02/26/2016 Findings: CT scans are performed using radiation dose reduction techniques.Technical factors are evaluated and adjusted to ensure appropriate moderation of exposure. Automated dose management technology is applied to adjust radiation exposure while achieving a diagnostic quality image. CT scan of the brain was performed without intravenous contrast. The patient is status post left posterior cranial fossa craniectomy. Diffuse volume loss is noted. Bilateral periventricular low densities of the white matter are unchanged. The ventricles are normal in size. No intracranial hemorrhage is seen. Lisa-white junctions are preserved. Opacification of left mastoid air cells and middle air cavity are stable. IMPRESSION: 1. Fluid within mastoid air cell and middle ear cavity is stable. 2. Chronic small vessel ischemic disease of the periventricular white matter. 3. Otherwise no acute intracranial abnormality identified and no change from the prior study. [facility]-[id number] Procedure Note [facility], Radiology Results Incoming - 08/27/2016 2:03 AM CDT Examination: CT HEAD WO CONTRAST Clinical History: CONFUSION DELERIUM ALTERED LOC UNEXPLAINED Comparison: 02/26/2016 Findings: CT scans are performed using radiation dose reduction techniques. Technical factors are evaluated and adjusted to ensure appropriate moderation of exposure. Automated dose management technology is applied to adjust radiation exposure while achieving a diagnostic quality image. CT scan of the brain was performed without intravenous contrast. The patient is status post left posterior cranial fossa craniectomy. Diffuse volume loss is noted. Bilateral periventricular low densities of the white matter are unchanged. The ventricles are normal in size. No intracranial hemorrhage is seen. Lisa-white junctions are preserved. Opacification of left mastoid air cells and middle air cavity are stable. IMPRESSION: 1. Fluid within mastoid air cell and middle ear cavity is stable. 2. Chronic small vessel ischemic disease of the periventricular white matter. 3. Otherwise no acute intracranial abnormality identified and no change from the prior study. [facility]-[id number] * Influenza antigen (08/27/2016 1:12 AM) Component Value Ref Range Influenza antigen Negative for Influenza A/B antigen. Comment: Specimen Information Specimen Source: Nares Specimen Site: Left Specimen Performing Laboratory Nares - Left [facility] DEPARTMENT OF PATHOLOGY AND GENOMIC MEDICINE [address] [place] [address] * Lactic acid level (08/27/2016 1:05 AM) Component Value Ref Range Lactic acid 1.9 0.5 - 2.2 mmol/L Specimen Performing Laboratory Plasma specimen [facility] DEPARTMENT OF PATHOLOGY AND GENOMIC MEDICINE [address] [place] [address] * Blood culture, aerobic & anaerobic (08/27/2016 1:00 AM) Only the most recent of 2 results within the time period is included. Component Value Ref Range Blood culture isolate No growth after 5 days of incubation. Comment: Specimen Information Specimen Source: Blood Specimen Site: Arm, right Specimen Performing Laboratory Blood - Arm, right [facility] DEPARTMENT OF PATHOLOGY AND GENOMIC MEDICINE [address] [place] [address] * B natriuretic peptide (08/27/2016 1:00 AM) Component Value Ref Range BNP 60 0 - 100 pg/mL Specimen Performing Laboratory Blood [facility] DEPARTMENT OF PATHOLOGY AND GENOMIC MEDICINE [address] [place] [address] after 08/21/2016 Insurance Payer Benefit Subscriber ID Type Phone Address Plan / Group MEDICARE MEDICARE xxxxxxxxxx Medicare [place], [place] PART A AND B [employer] xxxxxxxxxx [employer]
[2017-08-22] MEDS ORDERED: ONDANSETRON HCL INJ 2 MG/ML VIAL IV STA (06:57)
[2017-08-22] MEDS ORDERED: SODIUM CHLORIDE 0.9% 1000ML 1,000 ML IV STA (06:57)
[2017-08-22] MEDS ORDERED: PANTOPRAZOLE 40 MG 10ML VIAL IV STA (06:57)
[2017-08-22 07:24] LABS: BASOPHILS # (AUTO) 0.1 (0.0-0.1); BASOPHILS % 0.6 % (0.0-1.0); EOSINOPHILS % 0.1 % (0.0-6.0); HEMOGLOBIN 14.8 g/dL (12.0-16.0); LYMPHOCYTES # (AUTO) 2.3 (1.0-3.2); LYMPHOCYTES % 16.5 % (18.0-39.1); MEAN CORPUSCULAR HEMOGLOBIN 29.4 pg (28-32); MEAN CORPUSCULAR HGB CONC 31.5 g/dL (31-35); MEAN CORPUSCULAR VOLUME 93.3 fL (81-99); MONOCYTES # (AUTO) 1.2 (0.2-0.8); MONOCYTES % 8.7 % (4.4-11.3); NEUTROPHILS # (AUTO) 10.2 (2.1-6.9); NEUTROPHILS % 73.7 % (38.7-80.0); PLATELET COUNT 189 x10e3/uL (140-360); RED BLOOD COUNT 5.04 x10e6/uL (3.6-5.1); RED CELL DISTRIBUTION WIDTH 13.8 % (11.7-14.4)
[2017-08-22 07:58] LABS: CLARITY,URINE HAZY (CLEAR); COLOR,URINE YELLOW (YELLOW)
[2017-08-22 07:59] LABS: BILIRUBIN,URINE 1+ (NEGATIVE); KETONES,URINE 1+ (NEGATIVE); LEUKOCYTE ESTERASE ,URINE NEGATIVE (NEGATIVE); NITRITE,URINE NEGATIVE (NEGATIVE); PROTEIN,URINE DIPSTICK 1+ (NEGATIVE); URINE UROBILINOGEN 0.2 mg/dL (0.2 - 1); WBC,URINE (MAN) 0-5 /HPF (0-5)
[2017-08-22 08:00] LABS: BACTERIA,URINE MANY /HPF; EPITHELIAL CELLS,URINE MODERATE /LPF; MUCUS,URINE MANY (RARE)
[2017-08-22 08:06] LABS: INR 1.27; PARTIAL THROMBOPLASTIN TIME 27.2 seconds (23.8-35.5); PROTHROMBIN TIME 14.9 seconds (11.9-14.5)
--- NOTE | 2017-08-22 08:59 | Diagnostic Imaging Report ---
EXAMINATION: CHEST 2 VIEWS INDICATION: \S\COUGH COMPARISON: None FINDINGS: PA and lateral views TUBES and LINES: Right chest wall dual-lead cardiac device in place with distal leads overlying right atrium and right ventricle. LUNGS: Lungs are well inflated. There is no evidence of pneumonia or pulmonary edema. PLEURA: No pleural effusion or pneumothorax. HEART AND MEDIASTINUM: The cardiomediastinal silhouette is unremarkable. BONES AND SOFT TISSUES: No acute osseous lesion. Degenerative changes of thoracic spine. Soft tissues are unremarkable. UPPER ABDOMEN: No free air under the diaphragm. IMPRESSION: No acute thoracic abnormality. Signed by: Dr. Louie Saeed MD on 08/22/2017 8:55 AM
--- NOTE | 2017-08-22 09:13 | Diagnostic Imaging Report ---
EXAM: CT Abdomen and Pelvis WITHOUT contrast INDICATION: \S\NAUSEA, DIZZY, ABD PAIN \S\[id number] \S\[id number] COMPARISON: None. TECHNIQUE: Abdomen and pelvis were scanned utilizing a multidetector helical scanner from the lung base to the pubic symphysis without administration of IV contrast. Absence of intravenous contrast decreases sensitivity for detection of focal lesions and vascular pathology. Coronal and sagittal reformations were obtained. Routine protocol was performed. IV CONTRAST: None ORAL CONTRAST: None. COMPLICATIONS: None RADIATION DOSE: Total DLP: 342.24 mGy*cm Estimated effective dose: (DLP x 0.015 x size factor) mSv CTDIvol has been reviewed. It is below the limits set by the Radiation Protocol Committee (RPC). FINDINGS: LINES and TUBES: Distal leads of cardiac device are visualized. LOWER THORAX: Unremarkable. HEPATOBILIARY: Unenhanced liver is unremarkable. No biliary ductal dilation. GALLBLADDER: No radio-opaque stones or sludge. No wall thickening. SPLEEN: No splenomegaly. Subcentimeter calcified granulomas. PANCREAS: No focal masses or ductal dilatation. ADRENALS: No adrenal nodules KIDNEYS/URETERS: Superiorly displaced left kidney. No hydronephrosis. 3.5 cm right superior pole exophytic hypodensity cannot be fully characterized on this unenhanced study and is probably a cyst. No stones. GI TRACT: No abnormal distention, wall thickening, or evidence of bowel obstruction. Sigmoid diverticulosis without evidence of diverticulitis. Appendix is normal. Small hiatal hernia. PELVIC ORGANS/BLADDER: Hysterectomy. Bladder is under distended, limiting evaluation. LYMPH NODES: No lymphadenopathy. VESSELS: There is mild atherosclerotic disease in the aorta and major arterial branches. PERITONEUM / RETROPERITONEUM: No free air or fluid. BONES: Generalized demineralization limits evaluation. Degenerative changes of spine. T12 and L1 Central superior endplate depression, likely degenerative. Left iliac sclerotic focus (series 2, image 63), could represent a bone island. SOFT TISSUES: Large left-sided diaphragmatic hernia. IMPRESSION: 1. Limited study without intravenous contrast. 2. No acute inflammatory process in the abdomen/pelvis. 3. 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 4. Small hiatal hernia. Signed by: Dr. Louie Saeed MD on 08/22/2017 9:09 AM
--- NOTE | 2017-08-22 09:37 | Diagnostic Imaging Report ---
History:Dizziness Comparison studies:MR brain Technique: Axial images were obtained from the skull base to the vertex. Coronal and sagittal images reconstructed from the axial data. Intravenous contrast: None Findings: Scalp/skull: No abnormalities. Extra-axial spaces: No masses. No fluid collections. Brain sulci: Mildly prominent. Ventricles: Mild compensatory dilatation. No hydrocephalus. Parenchyma: Cortical based hypodense focus at the left lateral cerebellar hemisphere Scattered hypodensities in the supratentorial white matter are small vessel ischemic changes. No masses, hemorrhage, acute or chronic cortical vascular insults. Sellar/suprasellar region: No abnormalities. Craniocervical junction: Patent foramen magnum. No Chiari one malformation. Incidental findings: Atherosclerotic calcifications in the carotid siphons and left vertebral artery . Oppacifiacation of the left mastoid air cells and middle ear. Impression: Left lateral cerebellar hemisphere cortical based hypodensity, this could be artifactual or related to acute infarct. Left chronic otomastoiditis, seen in MR brain 07/03/11. MR of the brain w/o contrast and MRV are recommended for rule out infarct and patency of the left sigmoid sinus. Chronic findings: 1. Mild generalized volume loss. 2. Mild supratentorial white matter small vessel ischemic changes. Signed by: DR Nikhil Dykes M.D. on 08/22/2017 9:33 AM
[2017-08-22 09:47] LABS: ALBUMIN/GLOBULIN RATIO 0.8 (0.8-2.0); ANION GAP 16.3 mmol/L (8-16); CALCIUM 9.6 mg/dL (8.4-10.2); CREATININE, SERUM 0.97 mg/dL (0.57-1.11); MAGNESIUM 1.6 MG/DL (1.3-2.1); POTASSIUM 3.3 mmol/L (3.5-5.1)
[2017-08-22 09:53] LABS: CREATINE KINASE MB 2.2 ng/mL (0-5.0)
[2017-08-22] MEDS ORDERED: URSODIOL500 MG PO (10:26)
[2017-08-22] MEDS ORDERED: PREDNISONE5 MG PO (10:26)
[2017-08-22] MEDS ORDERED: eliquis PO (10:26)
[2017-08-22] MEDS ORDERED: ONDANSETRON HCL INJ 2 MG/ML VIAL IV PRN (11:15)
--- OUTSIDE RECORDS SUMMARY | 2017-08-22 11:47 | XMS REPORT ---
Author [facility] Address Unknown Phone Unavailable Care Team Providers Care System Support Administrator Name Role Phone SHAKIRA CORWELL Unavailable Unavailable Problems This patient has no known problems. Allergies, Adverse Reactions, Alerts This patient has no known allergies or adverse reactions. Medications This patient has no known medications. Results Test Description Test Time Test Comments Text Results Atomic Results Result Comments CT BRAIN WO 2017-08-22 09:13:00 [place] [address] Patient Name: LEEANNA VALENCIA MR #: [id number] : 1940 Age/Sex: 76/F Req #: [id number] Adm Physician: Ordered by: ARTIE HENDERSON MD Report #: [id number] Location: ER Room/Bed: Procedure: [id number] CT/CT BRAIN WO Exam Date: 08/22/17 Exam Time: 0857 REPORT STATUS: Signed History:Dizziness Comparison studies:MR brain Technique: Axial images were obtained from the skull base to the vertex. Coronal and sagittal images reconstructed from the axial data. Intravenous contrast: None Findings: Scalp/skull: No abnormalities. Extra-axial spaces: No masses. No fluid collections. Brain sulci: Mildly prominent. Ventricles: Mild compensatory dilatation. No hydrocephalus. Parenchyma: Cortical based hypodense focus at the left lateral cerebellar hemisphere Scattered hypodensities in the supratentorial white matter are small vessel ischemic changes. No masses, hemorrhage, acute or chronic cortical vascular insults. Sellar/suprasellar region: No abnormalities. Craniocervical junction: Patent foramen magnum. No Chiari one malformation. Incidental findings: Atherosclerotic calcifications in the carotid siphons and left vertebral artery . Oppacifiacation of the left mastoid air cells and middle ear. Impression: Left lateral cerebellar hemisphere cortical based hypodensity, this could be artifactual or related to acute infarct. Left chronic otomastoiditis, seen in MR brain 07/03/11. MR of the brain w/o contrast and MRV are recommended for rule out infarct and patency of the left sigmoid sinus. Chronic findings: 1. Mild generalized volume loss. 2. Mild supratentorial white matter small vessel ischemic changes. Signed by: DR Nikhil Dykes M.D. on 08/22/2017 9:33 AM Dictated By: NIKHIL DYKES MD 2 Transcribed By: NANCY on 08/22/17932 COPY TO: ARTIE HENDERSON MD CT ABDOMEN/PELVIS WO 2017-08-22 08:57:00 [place] [address] Patient Name: LEEANNA VALENCIA MR #: [id number] : 1940 Age/Sex: 76/F Req #: [id number] Adm Physician: Ordered by: ARTIE HENDERSON MD Report #: [id number] Location: ER Room/Bed: Procedure: [id number] CT/CT ABDOMEN/PELVIS WO Exam Date: 08/22/17 Exam Time: 08 REPORT STATUS: Signed EXAM: CT Abdomen and Pelvis WITHOUT contrast INDICATION: COMPARISON: None. TECHNIQUE: Abdomen and pelvis were scanned utilizing a multidetector helical scanner from the lung base to the pubic symphysis without administration of IV contrast. Absence of intravenous contrast decreases sensitivity for detection of focal lesions and vascular pathology. Coronal and sagittal reformations were obtained. Routine protocol was performed. IV CONTRAST: None ORAL CONTRAST: None. COMPLICATIONS: None RADIATION DOSE: Total DLP: 342.24 mGy*cm Estimated effective dose: (DLP x 0.015 x size factor) mSv CTDIvol has been reviewed. It is below the limits set by the Radiation Protocol Committee (RPC) . FINDINGS: LINES and TUBES: Distal leads of cardiac device are visualized. LOWER THORAX: Unremarkable. HEPATOBILIARY: Unenhanced liver is unremarkable. No biliary ductal dilation. GALLBLADDER: No radio-opaque stones or sludge. No wall thickening. SPLEEN : No splenomegaly. Subcentimeter calcified granulomas. PANCREAS: No focal masses or ductal dilatation. ADRENALS: No adrenal nodules KIDNEYS/URETERS: Superiorly displaced left kidney. No hydronephrosis. 3.5 cm right superior pole exophytic hypodensity cannot be fully characterized on this unenhanced study and is probably a cyst. No stones. GI TRACT: No abnormal distention, wall thickening, or evidence of bowel obstruction. Sigmoid diverticulosis without evidence of diverticulitis. Appendix is normal. Small hiatal hernia. PELVIC ORGANS/BLADDER: Hysterectomy. Bladder is under distended, limiting evaluation. LYMPH NODES: No lymphadenopathy. VESSELS: There is mild atherosclerotic disease in the aorta and major arterial branches. PERITONEUM / RETROPERITONEUM: No free air or fluid. BONES: Generalized demineralization limits evaluation. Degenerative changes of spine. T12 and L1 Central superior endplate depression , likely degenerative. Left iliac sclerotic focus (series 2, image 63), could represent a bone island. SOFT TISSUES: Large left-sided diaphragmatic hernia. IMPRESSION: 1. Limited study without intravenous contrast. 2. No acute inflammatory process in the abdomen/pelvis. 3. 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 4. Small hiatal hernia. Signed by: Dr. Louie Li MD on 08/22/2017 9:09 AM Dictated By: LOUIE LI MD 8 Transcribed By: NANCY on 08/22/17908 COPY TO: ARTIE HENDERSON MD CHEST 2 VIEWS 2017-08-22 08:54:00 [place] [address] Patient Name: LEEANNA VALENCIA MR #: [id number] : 1940 Age/Sex: 76/F Req #: [id number] Adm Physician: Ordered by: ARTIE HENDERSON MD Report #: [id number] Location: ER Room/Bed: Procedure: [id number] DX/CHEST 2 VIEWS Exam Date: 08/22/17 Exam Time: 0857 REPORT STATUS: Signed EXAMINATION: CHEST 2 VIEWS INDICATION: COMPARISON: None FINDINGS: PA and lateral views TUBES and LINES: Right chest wall dual-lead cardiac device in place with distal leads overlying right atrium and right ventricle. LUNGS: Lungs are well inflated. There is no evidence of pneumonia or pulmonary edema. PLEURA: No pleural effusion or pneumothorax. HEART AND MEDIASTINUM: The cardiomediastinal silhouette is unremarkable. BONES AND SOFT TISSUES: No acute osseous lesion. Degenerative changes of thoracic spine. Soft tissues are unremarkable. UPPER ABDOMEN: No free air under the diaphragm. IMPRESSION: No acute thoracic abnormality. Signed by: Dr. Louie Li MD on 08/22/2017 8:55 AM Dictated By: LOUIE LI MD 4 Transcribed By: NANCY on 08/22/17854 COPY TO: ARTIE HENDERSON MD
--- OUTSIDE RECORDS SUMMARY | 2017-08-22 11:47 | XMS REPORT | Clinical Summary ---
Author Author [facility] Address Unknown Phone Unavailable Care Team Providers Care Hydro[employer] Power [employer] Engineer Name Role Phone Asked, Pcp PCP Unavailable [...] Description 11/12/2016 Emergency Emergency Medicine Rosa, Noble D eLa Torre MD Colitis (Primary Dx); Chadd Johnson PA-C Diverticulitis of large intestine without perforation or abscess with bleeding 09/26/2016 Patient Quality Malia Hart, RN Outreach 09/25/2016 [facility] General Internal Medicine Rashaad Yanez Preoperative testing - Encounter MD Santhosh 09/26/2016 09/25/2016 Procedure Pass Procedural Cardiology 09/25/2016 Surgery Procedural Cardiology Rashaad Yanez Ep ppi [ 74875 (CPT )] MD Santhosh 09/24/2016 Pre-Admit Pre-Admission Testing Rashaad Yanez Preoperative testing Testing MD Santhosh (Primary Dx) Appointment 08/28/2016 Procedure Pass Procedural Cardiology 08/28/2016 Surgery Procedural Cardiology Rashaad Yanez Ep temporary ppi MD Santhosh insertion with active lead fixation and outside generator [16749 (CPT )] 08/26/2016 [facility] General Internal Medicine Facundo Nielsen Acute [...] INFLUENZA VACCINE 10/13/2017 Implants Implanted Type Area Operating Room Scheduler Device Expiration Model / Identifier Date Serial / Lot Disp Pacing Cable, Small Clip Cables/ N/A: N/A IZZY 09/05/2018 [id number] / W/[employer] / Implanted: Qty: 1 on 09/25/2016 by [id number] Rashaad Yanez MD Accolade Mri Dr Pacemaker - Cardiac Right: PERRY 07/28/2018 L311 / [id number] Pacemaker Chest SCIENTIFIC- CRM [id number] / Implanted: 09/25/2016 (Quantity not Generators Wall [id number] on file) 52cm Ingevity Mri Active Fixation Cardiac N/A: N/A PERRY 08/10/2018 7741 / Pacing Lead - [id number] - [id number] Pacing SCIENTIFIC- CRM [id number] / Implanted: Qty: 1 on 08/28/2016 by Leads or [id number] Rashaad Yanez MD Electrodes or Accessorie s Ingevity Mri Pacing Lead 45cm - Cardiac N/A: N/A PERRY 08/10/2018 7740 45 / [id number] Pacing SCIENTIFIC- CRM [id number] / Implanted: 09/25/2016 (Quantity not Leads or [id number] on file) Electrodes or Accessorie s 52cm Ingevity Mri Active Fixation Cardiac N/A: N/A PERRY 09/10/2018 7741 / Pacing Lead - [id number] Pacing SCIENTIFIC- CRM [id number] / Implanted: 09/25/2016 (Quantity not Leads or [id number] on file) Electrodes or Accessorie s 6fr Safesheath Ii Introducer Introducer Right: PERRY 04/15/2021 7460 / Sheath, Model 7460 / Part # /Sheath Chest SCIENTIFIC/CRM / [id number] (Mfr'D By Pressure Wall (FORMERLY DIV [id number] Products) OF GUIDANT) Implanted: Explanted: 08/28/2016 (Quantity not on file) Pacemaker Explanted Type Area Operating Room Scheduler Device Expiration Model / Identifier Date Serial / Lot 52cm (0.014in) [employer] Scientfic Accessorie N/A: N/A PERRY 2019 5013 / Lead Stylet, Long Tapered, Soft s - EP SCIENTIFIC/CRM [id number] / Implanted: (FORMERLY DIV [id number] Explanted: 08/28/2016 (Quantity not OF GUIDANT) on file) 6fr Safesheath Ii Introducer Introducer N/A: N/A PERRY 04/15/2021 7460 / Sheath, Model 7460 / Part # /Sheath SCIENTIFIC/CRM / [id number] (Mfr'D By Pressure (FORMERLY DIV [id number] Products) OF [employer]UIDANT) Implanted: Explanted: 09/25/2016 by Rashaad Yanez MD (Quantity not on file) Procedures Procedure Name Priority Date/Time Associated Diagnosis Comments EP PPI Routine 09/25/2016 4:58 PM CDT EP TEMPORARY PPI Routine 08/28/2016 INSERTION 5:05 PM CDT ECHOCARDIOGRAM 2D Routine 08/27/2016 Results for this COMPLETE W MMODE SPECTRAL 5:15 PM CDT procedure are in the COLOR DOPPLER (96158) results section. after 08/21/2016 Results * Urinalysis [...] UA 6-10 /LPF Specimen Performing Laboratory Urine [facility] DEPARTMENT OF PATHOLOGY AND GENOMIC MEDICINE [id number] [place] [address] [place] [address] * Gram stain (11/12/2016 1:26 PM) Only the most recent of 4 results within the time period is included. Component Value Ref Range Gram stain result Few WBC's No organisms seen Comment: Specimen Information Specimen Source: Urine Specimen Site: See UA Specimen Performing Laboratory Urine [facility] DEPARTMENT OF PATHOLOGY AND GENOMIC MEDICINE [address] [place] [address] * Urine culture (11/12/2016 1:26 PM) Only [...] were validated by the Microbiology Laboratory at [facility]. This source has not been approved by the U.S. Food and Drug Administration. The results are not intended to be used as the sole means for clinical diagnosis or patient management. The Microbiology Laboratory is authorized under the clinical Laboratory Improvement Amendments of 1988 (CLIA-88) to perform high complexity testing. (A) Specimen Performing Laboratory Urine [facility] DEPARTMENT OF PATHOLOGY AND GENOMIC MEDICINE [address] [place] [address] Organism Antibiotic Method Susceptibility Enterococcus faecalis Ampicillin [...] and Americans. Specimen Performing Laboratory Plasma specimen [facility] PATHOLOGY AND [facility] MEDICINE [address] [place] [address] * Troponin (11/12/2016 1:00 PM) Only the [...] myocardial injury. Specimen Performing Laboratory Plasma specimen [facility] PATHOLOGY AND [facility] [address] [place] [address] * CBC with platelet and differential (11/12/2016 [...] (promyelocytes, myelocytes, metamyelocytes) Specimen Performing Laboratory Blood [facility] DEPARTMENT OF PATHOLOGY AND [address] [place] [address] * Lipase level (11/12/2016 1:00 PM) Component Value Ref Range Lipase 41 13 - 60 U/L Specimen Performing Laboratory Plasma specimen [facility] PATHOLOGY AND [address] [place] [address] * Amylase level (11/12/2016 1:00 PM) Component Value Ref Range Amylase 75 (H) 13 - 73 U/L Specimen Performing Laboratory Plasma specimen [facility] PATHOLOGY [address] [place] [address] * Comprehensive metabolic panel (11/12/2016 1:00 PM) [...] Protein 7.4 6.3 - 8.3 g/dL Comment: Celoron 4.6-7.0 g/dL 1 week 4.4-7.6 g/dL 7 [...] 1.2 mg/dL Specimen Performing Laboratory Plasma specimen [facility] DEPARTMENT OF PATHOLOGY AND GENOMIC MEDICINE [address] [place] [address] * US Gallbladder (11/12/2016 11:32 AM) Specimen Performing Laboratory [facility] [address] [place] [address] Narrative EXAMINATION:US GALLBLADDER CLINICAL HISTORY:Cholecystitis COMPARISON:None. FINDINGS: Gallbladder: The gallbladder is without evidence of calculi. The gallbladder wall is not thickened and there is no pericholecystic fluid. CBD: 3 mm Portal vein: The portal vein demonstrates normal hepatopetal flow. Liver: The visualized portions of liver are unremarkable. IMPRESSION: Normal gallbladder ultrasound examination. [facility]-[id number] Procedure Note Interface, Radiology Results Incoming - [...] are unremarkable. IMPRESSION: Normal gallbladder ultrasound examination. [facility]-[id number] * CT Renal Stone Protocol (11/12/2016 11:10 AM) Specimen Performing Laboratory [facility] [address] [place] [address] Narrative EXAMINATION:CT RENAL STONE PROTOCOL CLINICAL HISTORY:75 [...] interposed between the spleen and the diaphragm [id number] Procedure Note Hm Interface, Radiology Results Incoming [...] interposed between the spleen and the diaphragm [id number] * XR Chest 1 Vw Portable (09/25/2016 6:21 PM) Only the most recent of 3 results within the time period is included. Specimen Performing Laboratory [facility] [address] [place] [address] Narrative EXAMINATION:XR CHEST 1 VW PORTABLE CLINICAL [...] the right apex is unchanged from prior. [facility]-[id number] Procedure Note Interface, Radiology Results Incoming - [...] the right apex is unchanged from prior. [facility]-[id number] * Cv electrophysiology procedure (09/25/2016 4:58 PM) Specimen Performing Laboratory [facility] [address] [place] [address] * ECG 12 lead (09/24/2016 10:46 AM) Only the most recent of 2 results within the time period is included. Component Value Ref Range Ventricular rate 90 Atrial rate 90 UT interval 158 QRSD interval 90 QT interval 320 QTC interval 391 P axis 1 53 QRS axis 1 -8 T wave axis 108 EKG impression Normal sinus rhythm-Left ventricular hypertrophy with repolarization abnormality-Abnormal ECG-In automated comparison with ECG of 29-AUG-2016 02:27,-Nonspecific T wave abnormality has replaced inverted T waves in Anterior leads-T wave inversion now evident in Lateral leads- Specimen Performing Laboratory [facility] [address] [place] [address] * Partial thromboplastin time, activated (09/24/2016 10:12 AM) Only the most recent of 2 results within the time period is included. Component Value Ref Range PTT 27.9 23.0 - 36.0 sec Comment: PTT therapeutic range for unfractionated heparin is 61.0-112.0 seconds which corresponds to Anti-Xa 0.3-0.7 U/ml. Specimen Performing Laboratory Blood [facility] DEPARTMENT OF PATHOLOGY AND [facility] [id number] [place] [address] [place] [address] * Prothrombin time with INR (09/24/2016 10:12 [...] vein thrombosis/pulmonary embolism. Specimen Performing Laboratory Blood [facility] PATHOLOGY AND [facility] [address] [place] [address] [place] [address] * CBC hemogram (09/24/2016 10:12 AM) Component [...] 0.00 /100 WBC Specimen Performing Laboratory Blood [facility] PATHOLOGY AND [facility] [address] [place] [address] [place] [address] * Basic metabolic panel (09/24/2016 10:12 AM) [...] 10.2 mg/dL Specimen Performing Laboratory Plasma specimen [facility] PATHOLOGY [address] [place] [address] * Vancomycin level, trough (09/02/2016 8:02 PM) Only the most recent of 3 results within the time period is included. Component Value Ref Range Vancomycin, trough 5.0 (L) 10.0 - 20.0 ug/mL Comment: Therapeutic Ranges: Peak 30.0 - 40.0 ug/mL Trough 10.0 - 20.0 ug/mL Specimen Performing Laboratory Serum [facility] PATHOLOGY AND [address] [place] [address] * Us duplex venous lower extremity (09/02/2016 4:12 PM) Specimen Performing Laboratory [facility] [address] [place] [address] Narrative The right lower extremity venous study [...] slide review Bakari adequate Specimen Performing Laboratory [facility] DEPARTMENT OF PATHOLOGY AND [facility] MEDICINE [address] [place] [address] [place] [address] * Thyroid stimulating hormone (09/01/2016 11:30 AM) Component Value Ref Range TSH 0.27 0.27 - 4.20 uIU/mL Specimen Performing Laboratory Plasma specimen [facility] DEPARTMENT OF PATHOLOGY AND [facility] MEDICINE [address] [place] [address] [place] [address] * ECG Pre/Post Op-Tomorrow (08/29/2016 2:27 AM) Component Value Ref Range Ventricular rate 84 Atrial rate 84 UT interval 160 QRSD interval 94 QT interval [...] abnormality in Anterior leads- Specimen Performing Laboratory [facility] [address] [place] [address] * Cv electrophysiology procedure (08/28/2016 5:05 PM) Specimen Performing Laboratory [facility] [address] [place] [address] * Echocardiogram complete w contrast and 3D [...] 59.30 % LV EF,BP 61.38 % [place],d A2C 6.56 cm [place],d A4C 6.16 cm [place],s A2C 5.24 cm [place],s A4C 5.29 cm LV,s 2.27 cm LV [...] T slope 11.60 Specimen Performing Laboratory [facility] [address] [place] [address] Narrative Left Ventricular ejection fraction is 55 [...] Radiology (08/27/2016 3:05 PM) Specimen Performing Laboratory [facility] [address] [place] [address] Narrative EXAMINATION:FL LUMBAR PUNCTURE CLINICAL HISTORY:Meningitis. Discussed [...] 1 minute, 48 seconds. 2 images obtained [id number] Procedure Note Interface, Radiology Results Incoming - [...] 1 minute, 48 seconds. 2 images obtained [id number] * VDRL, CSF screen (08/27/2016 2:53 PM) Component Value Ref Range VDRL, CSF screen Non-reactive Non-reactive Specimen Performing Laboratory Cerebrospinal fluid [facility] DEPARTMENT OF PATHOLOGY AND GENOMIC MEDICINE [address] [place] [address] * Glucose level, CSF (08/27/2016 2:53 PM) Component Value Ref Range Glucose, CSF 58 40 - 70 mg/dL Specimen Performing Laboratory Cerebrospinal fluid [facility] DEPARTMENT OF PATHOLOGY AND GENOMIC MEDICINE [address] [place] [address] [place] [address] * CSF culture (08/27/2016 2:45 PM) Component Value Ref Range CSF culture isolate No growth after 3 days. Comment: Specimen Information Specimen Source: CSF (Spinal Fluid) Specimen Site: CSF (spinal fluid) Specimen Performing Laboratory Cerebrospinal fluid - CSF [facility] DEPARTMENT PATHOLOGY AND GEN[facility] (spinal fluid) [address] [place] [address] * Protein, CSF (08/27/2016 2:45 PM) Component Value Ref Range Protein, CSF 257 (H) 15 - 45 mg/dL Specimen Performing Laboratory Cerebrospinal fluid [facility] DEPARTMENT OF PATHOLOGY AND [address] [place] [address] * CSF pathologist consult (08/27/2016 2:15 PM) Component Value Ref Range CSF pathologist consult Done Comment: Agree with cell count. Reviewed by Dr. Chadd Arora Specimen Performing Laboratory Cerebrospinal fluid [facility] DEPARTMENT OF PATHOLOGY AND [address] [place] [address] * CSF cell count with differential (08/27/2016 [...] 3 % Specimen Performing Laboratory Cerebrospinal fluid [facility] DEPARTMENT OF PATHOLOGY AND GENOMIC MEDICINE [address] [place] [address] [place] [address] * ECG ED Preliminary Interpretation - NOT AN ORDER (08/27/2016 2:47 AM) Narrative Facundo Nielsen MD 08/27/20162:47 AM ECG ED Preliminary Interpretation - Not an Order Performed by: FACUNDO NIELSEN Authorized by: FACUNDO NIELSEN ECG reviewed by ED Physician in the absence of a associate professor of economics: yes Previous ECG: Previous ECG:Unavailable Interpretation: Interpretation: abnormal Quality: Tracing quality:Limited by artifact Rate: ECG rate:102 ECG rate assessment: normal Rhythm: Rhythm: sinus rhythm Ectopy: Ectopy: none QRS: QRS axis:Normal QRS intervals:Normal Conduction: Conduction: normal ST segments: ST segments:Normal T waves: T waves: normal Comments: Sinus tachycardia. * Insert peripheral IV (08/27/2016 2:47 AM) Narrative Facunod Nielsen MD 08/27/20162:47 AM Insert peripheral IV [...] Contrast (08/27/2016 1:45 AM) Specimen Performing Laboratory [address] [address] Narrative Examination:CT HEAD WO CONTRAST Clinical History: [...] and no change from the prior study. [id number] Procedure Note Hm [facility], Radiology Results Incoming - 08/27/2016 2:03 AM [...] and no change from the prior study. [id number] * Influenza antigen (08/27/2016 1:12 AM) Component Value Ref Range Influenza antigen Negative for Influenza A/B antigen. Comment: Specimen Information Specimen Source: Nares Specimen Site: Left Specimen Performing Laboratory Nares - Left [facility] DEPARTMENT OF PATHOLOGY AND GENOMIC MEDICINE [address] [place] [address] * Lactic acid level (08/27/2016 1:05 AM) Component Value Ref Range Lactic acid 1.9 0.5 - 2.2 mmol/L Specimen Performing Laboratory Plasma specimen [facility] DEPARTMENT OF PATHOLOGY AND GENOMIC MEDICINE [address] [place] [address] * Blood culture, aerobic & anaerobic (08/27/2016 1:00 AM) Only the most recent of 2 results within the time period is included. Component Value Ref Range Blood culture isolate No growth after 5 days of incubation. Comment: Specimen Information Specimen Source: Blood Specimen Site: Arm, right Specimen Performing Laboratory Blood - Arm, right [facility] DEPARTMENT OF PATHOLOGY AND GENOMIC MEDICINE [address] [place] [address] * B natriuretic peptide (08/27/2016 1:00 AM) Component Value Ref Range BNP 60 0 - 100 pg/mL Specimen Performing Laboratory Blood [facility] DEPARTMENT OF PATHOLOGY AND GENOMIC MEDICINE [address] [place] [address] after 08/21/2016 Insurance Payer Benefit Subscriber ID Type Phone Address Plan / Group MEDICARE MEDICARE xxxxxxxxxx Medicare [place] PART A AND B [employer] xxxxxxxxxx Commercial [id number] [place]
[2017-08-22] MEDS ORDERED: CEFTRIAXONE SOD 1 GM VIAL IV SCH ×2 (12:00→21:00)
[2017-08-22] MEDS ORDERED: IPRATROPIUM BROMIDE 0.02% 2.5 ML NEB NEB SCH (12:00)
[2017-08-22 12:25] VITALS: BP 150/96
[2017-08-22] MEDS ORDERED: METHYLPREDNISOLONE SOD SUCC 125 MG/2ML VIAL IV ONE (12:30)
[2017-08-22 15:48] VITALS: BP 150/96
[2017-08-22] MEDS: D5.45%NS/KCL 20MEQ 1,000 ML IV SCH (15:59)
--- NOTE | 2017-08-22 16:03 | Consultation ---
DATE OF CONSULTATION: REASON FOR CONSULTATION: Recommendation for antibiotics. Thank you so much for asking me to see this patient. This patient who is a 76-year-old female is well known to me from before comes in with a few days of nausea, not feeling well, some headache, abdominal discomfort, diarrhea, and vomiting. The patient has history of hypertension, hypothyroidism, autoimmune hepatitis, factor V Leiden, status post permanent pacemaker, history of fracture of the left hip, chronic mastoid, CSF leak, recurrent meningitis, acoustic neuroma comes in with the above complaints. Feeling feverish. Patient came to the emergency room where she was admitted. PAST MEDICAL HISTORY: As above. PAST SURGICAL HISTORY: As above. ALLERGIES: NKA. SOCIAL HISTORY: There is no smoking, drug abuse or alcohol abuse. FAMILY HISTORY: Hypertension. REVIEW OF SYSTEMS GENERAL: At the present time, she is just having some headache. HEENT: There is no visual changes or hearing changes. GI: There is some nausea. No vomiting. : No urgency or frequency. SKIN: There is no rash. LABS: White count 13.8, hemoglobin 14. Her sodium is 138, potassium 3.3, creatinine 0.97. The patient had a CT of the abdomen and pelvis, which was limited study, but no acute process. She has a large left-sided diaphragmatic hernia. Sodium 138, potassium 3.3, creatinine 0.97. Liver enzymes within normal limits. Amylase and lipase within normal limits. White count 13.87, hemoglobin 14.8, hematocrit 47, and platelets 189,000. She had a CT of the brain which was mild generalized volume loss. IMPRESSION 1. Headache. 2. Feeling feverish. Concern about meningitis in the patient who has a spinal fluid leak. Will put her on Rocephin 1 g q.12 h. Obtain blood cultures and urine cultures. Recheck CBC. Recheck Chem panel. Will re-evaluate in the morning. Will follow with you. Job#: [id number] NICOLE
[2017-08-22 16:22] VITALS: BP 136/67
[2017-08-22] MEDS ORDERED: BENZONATATE 100 MG CAP PO PRN (18:45)
[2017-08-22] MEDS ORDERED: ACETAMINOPHEN 325 MG TAB PO PRN (18:45)
[2017-08-22] MEDS ORDERED: LORATADINE 10 MG TAB PO SCH (18:45)
[2017-08-22 18:55] VITALS: BP 150/82
[2017-08-22] MEDS: LEVALBUTEROL HCL SOLN NEBU 1.25 MG/3 ML NEB INH SCH (19:35)
[2017-08-22] MEDS: ALBUTEROL/IPRATROPIUM 3 ML NEB NEB SCH (19:35)
[2017-08-22] MEDS: LORATADINE 10 MG TAB PO SCH (20:43)
[2017-08-22 21:00] VITALS: BP 150/82
[2017-08-23 00:15] VITALS: BP 143/75
[2017-08-23] MEDS: D5.45%NS/KCL 20MEQ 1,000 ML IV SCH (00:35)
[2017-08-23] MEDS: LEVALBUTEROL HCL SOLN NEBU 1.25 MG/3 ML NEB INH SCH ×3 (01:25→14:45)
[2017-08-23] MEDS: ALBUTEROL/IPRATROPIUM 3 ML NEB NEB SCH ×3 (01:25→14:45)
[2017-08-23 05:14] VITALS: BP 148/86
[2017-08-23 05:22] VITALS: BP 148/86
--- NOTE | 2017-08-23 05:53 | Diagnostic Imaging Report ---
History:Headaches Comparison studies: Head CT on Brain MRI on 02/01/2015. Technique: Axial images were obtained from the skull base to the vertex. Coronal and sagittal images reconstructed from the axial data. Intravenous contrast: None Findings: Scalp/skull: No abnormalities. Extra-axial spaces: No masses. No fluid collections. Brain sulci: Mildly prominent. Ventricles: Mild compensatory dilatation. No hydrocephalus. Parenchyma: Ill defined, confluent hypodensities in the supratentorial white matter are small vessel ischemic changes. Bilateral cortical encephalomalacic changes in the lateral cerebellar hemispheres are the result of old vascular insults. No masses, hemorrhage, acute or chronic cortical vascular insults. Sellar/suprasellar region: No abnormalities. Craniocervical junction: Patent foramen magnum. No Chiari one malformation. Incidental findings: Diffuse nonspecific inflammatory changes throughout the left middle ear and mastoid. Impression: No acute abnormalities. No changes when compared to the head CT on the sixth Chronic findings: 1. Mild generalized volume loss. 2. Mild supratentorial white matter small vessel ischemic changes. 3. Diffuse inflammatory changes in the left middle ear and mastoid. Signed by: Dr. Nader Fuentes M.D. on 08/23/2017 5:50 AM
[2017-08-23 06:01] LABS: BASOPHILS % 0.2 % (0.0-1.0); HEMATOCRIT 40.7 % (34.2-44.1); HEMOGLOBIN 13.1 g/dL (12.0-16.0); LYMPHOCYTES # (AUTO) 1.1 (1.0-3.2); LYMPHOCYTES % 11.7 % (18.0-39.1); MEAN CORPUSCULAR HEMOGLOBIN 29.6 pg (28-32); MEAN CORPUSCULAR HGB CONC 32.2 g/dL (31-35); MEAN CORPUSCULAR VOLUME 91.9 fL (81-99); MONOCYTES # (AUTO) 0.8 (0.2-0.8); MONOCYTES % 7.9 % (4.4-11.3); NEUTROPHILS # (AUTO) 7.8 (2.1-6.9); NEUTROPHILS % 79.8 % (38.7-80.0); PLATELET COUNT 205 x10e3/uL (140-360); RED BLOOD COUNT 4.43 x10e6/uL (3.6-5.1); RED CELL DISTRIBUTION WIDTH 13.2 % (11.7-14.4)
--- NOTE | 2017-08-23 06:15 | Diagnostic Imaging Report ---
EXAMINATION: CHEST SINGLE (PORTABLE) INDICATION: Pneumonia. COMPARISON: 08/22/2017 FINDINGS: TUBES and LINES: The pacemaker is intact. LUNGS: Lungs are not well inflated. There are bibasilar atelectasis. There is mild prominence of the central pulmonary vasculature, consistent with pulmonary venous congestion. PLEURA: No pleural effusion or pneumothorax. HEART AND MEDIASTINUM: Cardiac size is mildly enlarged. There are atherosclerotic calcifications within the aorta. BONES AND SOFT TISSUES: No acute osseous lesion. Soft tissues are unremarkable. UPPER ABDOMEN: No free air under the diaphragm. IMPRESSION: No acute thoracic abnormality. Mild enlargement of the heart with central vascular congestion. Signed by: Dr. Phillip Ramos M.D. on 08/23/2017 6:12 AM
[2017-08-23 06:33] LABS: ANION GAP 11.5 mmol/L (8-16); CALCIUM 10.2 mg/dL (8.4-10.2); CREATININE, SERUM 0.97 mg/dL (0.57-1.11); POTASSIUM 4.5 mmol/L (3.5-5.1)
[2017-08-23] MEDS ORDERED: PANTOPRAZOLE SOD 40 MG TABEC PO SCH (07:30)
[2017-08-23 07:40] VITALS: BP 143/76
[2017-08-23] MEDS: LORATADINE 10 MG TAB PO SCH (08:46)
[2017-08-23] MEDS ORDERED: PREDNISONE 5 MG TAB PO SCH (09:00)
[2017-08-23] MEDS ORDERED: APIXABAN 5 MG TABLET PO SCH (09:00)
[2017-08-23] MEDS ORDERED: PREDNISONE 10 MG TAB PO SCH (10:00)
[2017-08-23] MEDS ORDERED: DIPHENHYDRAMINE HCL 25 MG CAP PO PRN (10:30)
--- NOTE | 2017-08-23 10:59 | Consultation ---
DATE OF CONSULTATION: ADDENDUM I went back and visited with her. She saw me. She is now complaining of some congestion with coughing productive of yellowish sputum and some headache. She said that the headache is not that bad. Feeling feverish but nothing really out of the ordinary. I have reviewed her CT scan with the radiologist of the head and the fact that there was concern that maybe some DVT. He recommended to repeat the CT with no contrast because of the patient has ALLERGY TO IODINE; however, she is telling me the last time she had severe allergy. Patient was given Benadryl and that helped her. When I visited the patient, she was doing well. I have reviewed medication list. PHYSICAL EXAMINATION GENERAL: She is currently alert, oriented, does not seem to be in acute distress. VITALS: Stable. Currently afebrile. HEENT: She is not icteric. Normocephalic. NECK: Supple. No JVD. No lymphadenopathy, no thyromegaly. CHEST: Clear bilaterally. HEART: S1 and S2. No S3 or S4, no murmur. ABDOMEN: Soft. Bowel sounds present. EXTREMITIES: No edema. SKIN: There is no rash. JOINTS: There is no erythema or edema. MEDICATION LIST: She is on Claritin 10. I started her on Rocephin 1 g q.12 h. She is also on potassium, Eliquis, prednisone, and Xopenex. I have discussed the case with the attending. I think the patient has bronchitis versus early pneumonia versus other type of infection. I agree with Rocephin. The question of the abnormal CT, radiologist recommends to repeat the CT again tomorrow and compare them without contrast. I am going to assess again the patient in the morning. We cannot do an MRI because the patient had a pacemaker. We will follow. Job#: [id number] CF
[2017-08-23 11:52] VITALS: BP 145/79
[2017-08-23] MEDS ORDERED: BENZONATATE 100 MG CAP PO SCH (12:00)
--- NOTE | 2017-08-23 14:34 | History and Physical ---
CHIEF COMPLAINT: Cough, nausea and vomiting. HISTORY OF PRESENT ILLNESS: Ms. Mayfield is a 76-year-old female, who presented with cough, nausea, vomiting. 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 She reports that the cough has been going on for the last few days and it has been progressively worse. She has low-grade fever with cough and she is brining up phlegm as well. She underwent a chest x-ray in a emergency room which was normal. 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 She underwent a CT of the brain as well in the emergency room and there was a question that she may have sigmoid sinus thrombosis, however, she cannot get a CTA because she has an allergic reaction to the dye that include anaphylactic shock as well. REVIEW OF SYSTEMS: GENERAL: Denies any fever or chills. HEAD: Denies any head trauma. ENT: Denies any earache. She has some facial ache possibly from sinuses. GI: The patient is having nausea. MUSCULOSKELETAL: Denies any arthralgias or myalgias. NEURO: Denies any focal weakness. The rest of the review of systems is negative except as in HPI. PAST MEDICAL HISTORY 1. 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 2. Factor V Leiden mutation, on chronic anticoagulation. 3. Hypertension. 4. Hyperlipidemia. 5. Pacemaker status. 6. History of fracture of left hip. PAST SURGICAL HISTORY: Hysterectomy, , surgery for acoustic neuroma. FAMILY AND SOCIAL HISTORY: She does not smoke, does not drink. Lives with her . PHYSICAL EXAMINATION: VITAL SIGNS: Temperature 99.6, pulse of 94, blood pressure 150/96, T-max of 100. HEENT: Head atraumatic, normocephalic. Pupils are reactive. NECK: Supple. CHEST: Clear to auscultation bilaterally. No wheezing. HEART: S1, S2 audible. ABDOMEN: Soft, nontender. EXTREMITIES: No clubbing, cyanosis or edema. NEUROLOGIC: Awake and alert. [place]: [place] [address], hemoglobin 14.8, platelets 189,000. Chemistry: Sodium 138, potassium 3.3, BUN 28, creatinine 0.9. IMAGING: Reviewed. The results are dictated in the HPI. CT abdomen is showing hiatal hernia and herniation of left spleen in the thorax. Brain CT is showing question of thrombosis. ASSESSMENT/PLAN: Ms. Paredes is a 76-year-old female who presented with cough and low-grade fever. Cough is productive of whitish phlegm. She has a history of factor V Leiden mutation. There is a question about sigmoid sinus thrombosis on CT. However, CT with contrast cannot be done. Current problems: 1. Cough productive of whitish phlegm. Known history of asthma, sinusitis and history of chronic mastoid fracture with CSF leak. I will start the patient on Flonase and Xopenex nebulizer treatment. Hopefully, it is going to help him cough. 2. History of factor V Leiden mutation and possibility of thrombus. Again, on Eliquis. Will consult hematology. 3. Fever and headache and history of recurrent meningitis in the past because of spinal fluid leak. Dr. Shannon has started the patient on Rocephin 1 g IV q.12 h. Blood cultures, urine cultures have been ordered. 4. History of pacemaker status, history of cardiac arrest in the past. Currently stable from cardiac standpoint. 5. Abnormal CT of the head and need for CTA or MRI. However, the patient has anaphylactic reaction from the contrast. I will consult neurology for further recommendations. 6. Discussed with the patient's at bedside in detail and also discussed with Dr. Fowler from hematology. Job#: [id number] [employer]
[2017-08-23 14:36] LABS: CHOL/HDL RATIO 4.3 (3.0-3.6)
[2017-08-23 15:49] VITALS: BP 153/89
--- NOTE | 2017-08-23 16:09 | Consultation ---
DATE OF CONSULTATION: August 23, 2017 NEUROLOGY CONSULTATION HISTORY OF PRESENT ILLNESS: Ms. Mayfield is a 76-year-old right hand dominant woman with past medical history significant for hypertension, atrial fibrillation, factor V Leiden mutation, and chronic cerebrospinal fluid leak who presented to [facility] [place] on August 22, 2017 with symptoms of an infectious illness. Two days prior to admission, patient experienced the gradual onset of facial pain which is further described as a dull pain over the eyebrows and cheeks, fullness of the ears, cough productive of yellow sputum, rhinorrhea, and decreased oral intake. As stated above, Ms. Mayfield has a chronic cerebrospinal fluid leak and has had meningitis twice. The patient was concerned the above symptoms represented a recurrence of meningitis and proceeded to the Emergency Center at [facility] [place] for further evaluation and treatment. Ms. Mayfield does not report a headache. She does not report photophobia, phonophobia, nausea, vomiting, or dizziness. She does not endorse a visual field defect or other disturbance, dysarthria, aphasia, weakness, numbness, gait or balance impairment, or confusion. The patient does not report neck pain or stiffness. Upon arrival in the emergency center, the patient was afebrile with a blood pressure of 143/116 mmHg and pulse of 106 beats per minute. Patient's neurological examination was documented as follows: Oriented times 3. No motor deficit. A CT of the brain without contrast was performed while the patient was in the emergency center. The study showed a hypodensity of the left lateral cerebellar hemisphere, concerning for subacute ischemia. Ms. Mayfield was admitted to [facility] [place] under observation status for further evaluation of this abnormal finding on CT of the brain without contrast as well as evaluation and treatment of other symptoms. REVIEW OF SYSTEMS: A productive cough, rhinorrhea, facial pain, decreased oral intake. Otherwise the 12 point review of systems is negative. PAST MEDICAL HISTORY: Hypertension, atrial fibrillation, thyroid disease, Sjogren's disease, fibromyalgia, multiple urinary tract infections, autoimmune hepatitis, seizures (remote, secondary to medication), left breast cancer, chronic cerebrospinal fluid leak (reportedly on prophylactic antibiotics), meningitis times 2, factor V Leiden mutation. PAST SURGICAL HISTORY: Resection of left acoustic neuroma, multiple surgeries of the left mastoid bone, left mastectomy, surgical repair of fractured left tibia and fibula, left bunionectomy, total hysterectomy, section times 2, tonsillectomy, pacemaker placement. PAST HOSPITALIZATIONS: Surgeries/procedures as listed, meningitis times 2. FAMILY HISTORY: Patient's paternal and maternal grandparents are . Their medical histories are unknown. The patient's father is from unknown cancer. Ms. Mayfield's mother from complications of congestive heart failure. The patient has 2 brothers who are alive. The oldest brother had an abdominal hernia which required extensive surgical repair. The younger of the 2 brothers is healthy. The patient has 2 children who are both living. Ms. Mayfield's son has factor V Leiden mutation. Her daughter is healthy. SOCIAL HISTORY: The patient is . She has a bachelor's degree in education. 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 The patient does not report current or prior tobacco, alcohol, or recreational drug use. HOME MEDICATIONS: Eliquis 5 mg by mouth twice daily, prednisone 5 mg by mouth daily, ursodiol 500 mg by mouth daily. ALLERGIES: PATIENT IS ALLERGIC TO OPIOIDS, IODINE, SULFA, CIPROFLOXACIN, MACROBID, AND TETRACYCLINE. MS. MAYFIELD IS ALLERGIC TO SOY. No known allergies to Latex. THE PATIENT IS ALLERGIC TO IODINATED CONTRAST STATED ABOVE. PHYSICAL EXAMINATION VITAL SIGNS: Height 69 inches, weight 166 pounds. BMI 24.4 kg per meter squared. Blood pressure 145/79 mmHg, pulse 92 beats per minute, respiratory rate 20 breaths per minute, oxygen saturation 95% on 3 liters by nasal cannula. GENERAL: Patient is awake and alert, does not appear distressed. HEENT: Normocephalic, atraumatic. Pupils are surgical. Moist mucous membranes. NECK: Supple. No appreciable thyromegaly. No appreciable carotid bruits. CARDIOVASCULAR: S1, S2 regular rate and rhythm. No murmurs, rubs, or gallops. RESPIRATORY: Clear to auscultation bilaterally. No wheezes, rhonchi, or rales. EXTREMITIES: The skin is warm and dry. No clubbing, cyanosis, or edema. The posterior tibial and dorsalis pedis pulses are 1+ and symmetric. SKIN: Multiple ecchymoses over the right arm. NEUROLOGIC Memory/Attention: The patient is awake and alert, oriented to person, place, time, and situation. Cranial Nerves: Cranial nerve 1-not tested. Cranial nerve 2,3, 4, and 6-pupils are surgical, extraocular movements intact, no nystagmus. Cranial nerve 5-sensation to light touch and pinprick is intact in the bilateral V1 through V3 distributions. Strength of the temporalis and masseter muscles is within normal limits. Cranial nerve 7-the face is symmetric as are all facial movements. Strength is within normal limits. Cranial nerve 8-hearing is absent to finger rub on the left. Cranial nerves 9, 10-the soft palate elevates equally and symmetrically. Cranial nerve 11-normal strength of the bilateral sternocleidomastoid and trapezius muscles. Cranial nerve 12-the tongue protrudes midline and moves symmetrically from side to side. Strength: Bulk is normal. The patient maintains both arms against gravity for more than 10 seconds each without drift. The patient maintains both legs against gravity for more than 5 seconds each without drift. Tone is normal. DTRs: Deep tendon reflexes are 1+ and symmetric at the triceps, biceps, brachioradialis, and patellas. Deep tendon reflexes are absent and symmetric at the Achilles. Plantar responses are flexor bilaterally. Sensation: Sensation is intact to light touch and pinprick in both arms and both legs except as follows: Diminished sensation to light touch and pinprick with dysesthesias over the left arm. Cerebellar: [id number] and heel-staley movements are intact without dysmetria or other impairment. Gait: Gait deferred. Speech: Spontaneous speech is normal without appreciable dysarthria or aphasia. Repetition is intact. Involuntary Movements: None. Pronator Drift: None. LABORATORY DATA: Sodium 134, potassium 4.5, chloride 106, carbon dioxide 21, anion gap 11.5. BUN 27, creatinine 0.97. Estimated GFR 56. BUN to creatinine ratio 28. Glucose 260. Calcium 10.2 from August 22, 2017. Total bilirubin 0.9, AST 25, ALT 21, alkaline phosphatase 90. Total protein 6.8, albumin 3.0, globulin 3.8. Albumin to globulin ratio 0.8. Lactic acid 17.2. B-natriuretic peptide 47.8. Creatinine kinase 160. CK-MB 2.20. Troponin I 0.034. The CBC with differential and platelets reveals a white blood cell count of 9.73 with 79.8% neutrophils, 11.7% lymphocytes, 7.9% monocytes, 0.0% eosinophils, 0.2% basophils. Hemoglobin and hematocrit are 13.1 and 40.7, respectively. Platelet count is 205. PT 14.9 and INR 1.27. PTT 27.2. Urinalysis from 08/22/2017 reveals 1+ protein, 1+ ketones, 2+ blood, 1+ bilirubin, 6 to 10 red blood cells, moderate urine epithelials cells, many urine bacteria and urine mucus. Urine and blood cultures drawn on August 22, 2017 revealed no growth at 24 hours. DIAGNOSTIC STUDIES Electrocardiogram 08/22/2017: Sinus tachycardia at 113 beats per minute. Chest x-ray 08/22/2017: No acute thoracic abnormality. CT of the brain without contrast 08/22/2017: Left lateral cerebellar hemisphere cortical base hypodensity which could be artifactual or related to acute infarct. Left chronic otomastoiditis. Mild generalized volume loss. Mild supratentorial white matter small vessel ischemic changes. CT of the abdomen and pelvis 08/22/2017: Limited study without intravenous contrast. No acute inflammatory process in the abdomen/pelvis. Large left-sided diaphragmatic hernia with herniation of left kidney and part of the spleen to the lower thorax. Small hiatal hernia. Chest x-ray 08/23/2017: No acute thoracic abnormality. Mild enlargement of heart with central vascular congestion. CT of the brain without contrast 08/23/2017: On my review, there is no evidence of recent large territorial ischemia, hemorrhage, mass, or mass effect. There is an area of encephalomalacia in the left posterior middle cerebral artery distribution. There is questionable remote ischemia of the lateral cerebellar cortices. ASSESSMENT AND PLAN: Ms. Mayfield is a 76-year-old right hand dominant woman with past medical history significant for hypertension (not currently on medication), atrial fibrillation, and factor V Leiden deficiency admitted to [facility] [place] with symptoms described in history of present illness. In my opinion, there is no acute neurological process present. However, the CTs of the brain without contrast have revealed at least 1, if not multiple prior ischemic strokes. Ms. Mayfield has not previously been diagnosed with a stroke nor has she undergone a stroke evaluation. Patient's neurological examination is more or less nonfocal except as follows: Absent hearing of the left ear, diminished sensation to light touch and pinprick with dysesthesias over the left arm. Ms. Mayfield's laboratory data and other diagnostic studies have been reviewed and are documented above. While the patient is in the hospital, a complete stroke evaluation will be performed. RECOMMENDATIONS: Are as follows: 1. Lipid panel and hemoglobin A1c. 2. Ms. Mayfield recently establish care with a new university administrative assistant who has performed a complete evaluation, including an echocardiogram and bilateral carotid artery ultrasound with Doppler. Those studies will be obtained for review. 3. Continue treatment with Eliquis 5 mg by mouth twice daily for stroke prophylaxis. 4. Normalize blood pressure. Patient's goal blood pressure is less than 140/90 mmHg. 5. Followup lipid panel and treat with statin medication if necessary. 6. Followup hemoglobin A1c. I recommend tight glycemic control while the patient is in hospital. 7. GI prophylaxis with Pepcid 20 mg by mouth twice daily before meals. DVT prophylaxis with Eliquis 5 mg by mouth twice daily. 8. Defer treatment of the remaining medical comorbidities to the primary and other services. Thank you for this consultation. I will continue to follow this patient while she remains in the hospital. Time spent: 70 minutes. Job#: [id number] HAMILTON [employer]UEAT
[2017-08-23] MEDS ORDERED: FAMOTIDINE 20 MG TAB PO SCH (16:30)
--- NOTE | 2017-08-23 19:51 | Discharge Summary ---
FINAL DIAGNOSES 1. History of factor V Leiden mutation. 2. Cough. 3. History of autoimmune hepatitis. 4. 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 ADMISSION HISTORY AND HOSPITAL COURSE: Ms. Mayfield is a 76-year-old female who has a history of chronic CSF leak secondary to mastoid fracture, factor V Leiden mutation, hypertension, pacemaker who presented with history of acoustic neuromas and presented with cough and nausea and vomiting. Nausea and vomiting resolved. Also has mild cough. Dr. Shannon was consulted and the patient was started on antibiotics for possible recurrent meningitis due to CSF leak. There was a question of sigmoid vein thrombosis on a CT scan which was done. Hematology was consulted and they recommended continuing liquids. Dr. Wiseman was consulted for neurology opinion and she recommended outpatient followup. The patient will be discharged home to follow up with Dr. Shannon and Dr. Wiseman as an outpatient. JANNETTE MENDOZA MD Job#: [id number]
[2017-08-24] MEDS ORDERED: AZITHROMYCIN ORAL SUSP 200 MG/5 ML PO SCH (09:00)
[2017-08-24] MEDS ORDERED: AZITHROMYCIN 250 MG TAB PO SCH (09:00)
[2017-08-24] MEDS ORDERED: PREDNISONE 5 MG TAB PO SCH (09:00)
== END 2017-08-23 17:25 | disposition home or self-care (01) | DRG 98 ==
LOC: ER 06:21 → ERHOLD 11:43 → IMCU 11:50 → ACU 08-23 10:37 → IMCU 08-23 10:37 → OBSVTOIN 08-23 11:14
PROVIDERS: ADMIT Internal Medicine; ATTEND Internal Medicine
PROC: 02HV33Z Insertion of Infusion Device into Superior Vena Cava, Percutaneous Approach (ICD-10-PCS; principal; 2017-08-22)
DX: G03.8 Meningitis due to other specified causes (principal); D68.51 Activated protein C resistance; N39.0 Urinary tract infection, site not specified; I10 Essential (primary) hypertension; Z95.0 Presence of cardiac pacemaker; D33.3 Benign neoplasm of cranial nerves; M35.00 Sjogren syndrome, unspecified; M79.7 Fibromyalgia; J32.9 Chronic sinusitis, unspecified; H70.892 Other mastoiditis and related conditions, left ear; L27.1 Localized skin eruption due to drugs and medicaments taken internally; T36.1X5A Adverse effect of cephalosporins and other beta-lactam antibiotics, initial encounter; E87.6 Hypokalemia; J45.909 Unspecified asthma, uncomplicated; J40 Bronchitis, not specified as acute or chronic; R90.82 White matter disease, unspecified; G93.89 Other specified disorders of brain
CPT/HCPCS: 36415; 70450; 71045; 71046; 74176; 80048; 80053; 80061; 81001; 82550; 82553; 83036; 83605; 83690; 83735; 83880; 84484; 85025; 85610; 85730; 87040; 87086; 93005; 94640; 99284; G0378; J0696; J2405; J2930; J7030; J7512